=== PATIENT | female | born 1980 | race Caucasian/White ===

== ENCOUNTER 2019-05-16 19:44 | Emergency (ER) | payer OTHER ==
--- NOTE | 2019-05-16 20:51 | EDM.PDOC ---
ED HPI GENERAL MEDICAL PROBLEM - General Chief Complaint: General Stated Complaint: MEDICAL CLEARANCE Time Seen by Provider: 05/16/19 20:39 Source of Information: Reports: Patient History Limitations: Reports: No Limitations - History of Present Illness INITIAL COMMENTS - FREE TEXT/NARRATIVE: HISTORY AND PHYSICAL: History of present illness: Patient is a 38 she'll female who presents to the emergency room by law enforcement for medical clearance. Patient currently offers no concerns or complaints, she states she has chronic pain but doesn't have her usual pain medications because she is approximately 24 weeks . She reports she has had care with Dr Ellie Grijalva. She reports having a hard time as her dog recently and is under a lot of stress. Enforcement states that they have placed a committal on her for mental health evaluation in [place]. They want her medically cleared for transport to [facility]. Patient denies any fever, chills, headache, change in vision, syncope or near syncope. Denies any chest pain, back pain, shortness of breath or cough. Denies any abdominal pain, nausea, vomiting, diarrhea, constipation or dysuria. Has had vaginal discharge, but no vaginal bleeding/cramping. Has not noted any blood in urine or stool. Patient has been eating and drinking appropriately. Denies any alcohol or drug abuse. Review of systems: As per history of present illness and below otherwise all systems reviewed and negative. Past medical history: As per history of present illness and as reviewed below otherwise noncontributory. Surgical history: As per history of present illness and as reviewed below otherwise noncontributory. Social history: See social history for further information Family history: As per history of present illness and as reviewed below otherwise noncontributory. Physical exam: General: Well-developed and well-nourished 38-year-old female. Alert and oriented. patient is hyperverbal and appears anxious although in no acute distress. HEENT: Atraumatic, normocephalic, pupils equal and reactive bilaterally, negative for conjunctival pallor or scleral icterus, mucous membranes moist, TMs normal bilaterally, throat clear, neck supple, nontender, trachea midline. No drooling or trismus noted. No meningeal signs. No hot potato voice noted. Lungs: Clear to auscultation, breath sounds equal bilaterally, chest nontender. Heart: S1S2, regular rate and rhythm without overt murmur Abdomen: Soft, nondistended, nontender. Negative for masses or hepatosplenomegaly. Negative for costovertebral tenderness. Skin: Intact, warm, dry. No lesions or rashes noted. Extremities: Atraumatic, moves all extremities per self without difficulty or deficits, negative for cords or calf pain. Neurovascular unremarkable. Neuro: Awake, alert, oriented. Cranial nerves II through XII unremarkable. Cerebellum unremarkable. Motor and sensory unremarkable throughout. Exam nonfocal. Notes: VSS. FHT 150's. Supportive care measures were reviewed and discussed. Voices understanding and is agreeable to plan of care. Denies any further questions or concerns at this time. D/c with law enforcement. Diagnostics: Heart Tone Therapeutics: None Prescription: None Impression: Encounter for medical screening exam Plan: 1. Please go to treatment facility that you have arranged for further psychiatric management. 2. Return to ED as needed and as discussed. Definitive disposition and diagnosis as appropriate pending reevaluation and review of above. chronic Pain Score (Numeric/FACES): 10 - Related Data Allergies Allergy/AdvReac Type Severity Reaction Status Date / Time Sulfa (Sulfonamide Allergy Swelling Verified 05/16/19 20:41 Antibiotics) tizanidine Allergy Rash Verified 05/16/19 20:41 Home Meds: Home Meds tiZANidine [Zanaflex] 0 mg PO QID 05/16/19 [History] ED ROS GENERAL - Review of Systems Review Of Systems: Comprehensive ROS is negative, except as noted in HPI. ED EXAM, GENERAL - Physical Exam Exam: See Below (See dictation) Course - Vital Signs Last Recorded V/S: Last Vital Signs Temp 97.8 F 05/16/19 20:42 Pulse 102 H 05/16/19 20:42 Resp 18 05/16/19 20:42 BP 136/78 05/16/19 20:42 Pulse Ox 97 05/16/19 20:42 Departure - Departure Time of Disposition: 20:51 Disposition: Home, Self-Care 01 Clinical Impression: Encounter for medical screening examination - Discharge Information Referrals: Ellie Lyon CNM [Primary Care Provider] - Forms: ED Department Discharge Additional Instructions: The following information is given to patients seen in the emergency department who are being discharged to home. This information is to outline your options for follow-up care. We provide all patients seen in our emergency department with a follow-up referral. The need for follow-up, as well as the timing and circumstances, are variable depending upon the specifics of your emergency department visit. If you don't have a primary care physician on staff, we will provide you with a referral. We always advise you to contact your personal physician following an emergency department visit to inform them of the circumstance of the visit and for follow-up with them and/or the need for any referrals to a consulting specialist. The emergency department will also refer you to a specialist when appropriate. This referral assures that you have the opportunity for follow-up care with a specialist. All of these measure are taken in an effort to provide you with optimal care, which includes your follow-up. Under all circumstances we always encourage you to contact your private physician who remains a resource for coordinating your care. When calling for follow-up care, please make the office aware that this follow-up is from your recent emergency room visit. If for any reason you are refused follow-up, please contact the [facility] Emergency Department at and asked to speak to the emergency department charge nurse. [facility] [address] [place] [id number] [facility] [address] [place] [id number] 1. Please go to treatment facility that you have arranged for further psychiatric management. 2. Return to ED as needed and as discussed. Sepsis Event Note - Evaluation Sepsis Screening Result: No Definite Risk - Focused Exam Vital Signs: Vital Signs Temp Pulse Resp BP Pulse Ox 05/16/19 20:42 97.8 F 102 H 18 136/78 97 Date Exam was Performed: 05/16/19 Time Exam was Performed: 20:52
== END 2019-05-16 21:05 | disposition home or self-care (01) ==
LOC: MW.ED 19:44
DX: Z13.30 Encounter for screening examination for mental health and behavioral disorders, unspecified (principal); Z88.2 Allergy status to sulfonamides; Z88.8 Allergy status to other drugs, medicaments and biological substances; Z3A.24 24 weeks gestation of pregnancy
CPT/HCPCS: 99283

== ENCOUNTER 2019-08-10 16:59 | Inpatient (IN) | payer MEDICAID ==
[2019-08-10] MEDS ORDERED: Sodium Chloride 0.9% 10 ML Syringe FLUSH PRN ×2 (17:47→21:05)
[2019-08-10] MEDS ORDERED: Sodium Chloride 0.9% 2.5 ML Syringe FLUSH PRN ×2 (17:47→21:05)
[2019-08-10] MEDS ORDERED: hydrALAZINE 20 MG/ML SDV IVPUSH ONE (18:06)
--- NOTE | 2019-08-10 18:13 | EDM.PDOC ---
ED HPI GENERAL MEDICAL PROBLEM - General Chief Complaint: UMBRELLA TIPPER Problem Stated Complaint: UNKNOWN Time Seen by Provider: 08/10/19 18:13 Source of Information: Reports: Patient History Limitations: Reports: No Limitations - History of Present Illness INITIAL COMMENTS - FREE TEXT/NARRATIVE: 38-year-old female delivered 5 days ago has a history of eclampsia on medication. Patient is on 20 mg of labetalol daily and presented with headaches and right upper quadrant abdominal pain. Denies seizures or any other problems. Onset: Today Duration: Hour(s):, Getting Worse Location: Reports: Head, Abdomen Quality: Reports: Burning, Pressure Severity: Moderate Improves with: Reports: None Worsens with: Reports: None Associated Symptoms: Reports: Headaches post sx site Pain Score (Numeric/FACES): 10 - Related Data Allergies Allergy/AdvReac Type Severity Reaction Status Date / Time ciprofloxacin [From Cipro] Allergy Hives Verified 08/10/19 17:53 Sulfa (Sulfonamide Allergy Swelling Verified 08/10/19 17:53 Antibiotics) tizanidine Allergy Rash Verified 08/10/19 17:53 Home Meds: Home Meds Acetaminophen/oxyCODONE [Percocet 325-5 MG] 5 - 325 mg PO Q4HR PRN 08/10/19 [ History] Labetalol [Normodyne] 200 mg PO DAILY 08/10/19 [History] Past Medical History HEENT History: Reports: None Cardiovascular History: Reports: Hypertension Respiratory History: Reports: Asthma Genitourinary History: Reports: None UMBRELLA TIPPER History: Reports: Musculoskeletal History: Reports: RA Psychiatric History: Reports: Bipolar, Depression, PTSD, Suicidal Ideation - Infectious Disease History Infectious Disease History: Reports: Chicken Pox, Hepatitis A, Hepatitis B, Hepatitis C, HIV-Human Immunodeficiency Virus, Measles, Mumps, Shingles - Past Surgical History Female Surgical History: Reports: None Social & Family History - Family History Family Medical History: Noncontributory ED ROS GENERAL - Review of Systems Review Of Systems: See Below Constitutional: Reports: Weakness, Fatigue Respiratory: Reports: No Symptoms Cardiovascular: Reports: No Symptoms Endocrine: Reports: No Symptoms GI/Abdominal: Reports: No Symptoms : Reports: No Symptoms Neurological: Reports: Headache Psychiatric: Reports: No Symptoms Hematologic/Lymphatic: Reports: No Symptoms Immunologic: Reports: No Symptoms ED EXAM - Physical Exam Exam: See Below Exam Limited By: No Limitations General Appearance: Alert, WD/WN, No Apparent Distress, Moderate Distress Eye Exam: Bilateral Eye: Normal Fundi, Normal Inspection Ears: Normal External Exam, Normal Canal Nose: Normal Inspection, Normal Mucosa Throat/Mouth: Normal Inspection, Normal Lips Head: Atraumatic, Normocephalic Neck: Normal Inspection, Supple Respiratory/Chest: No Respiratory Distress, Lungs Clear Cardiovascular: Normal Peripheral Pulses, Regular Rate, Rhythm, No JVD GI/Abdominal Exam: Normal Bowel Sounds, Soft, Non-Tender Back Exam: Normal Inspection, Full Range of Motion Extremities: Normal Inspection, Normal Range of Motion Neurological: Alert, Oriented, CN II-XII Intact, Normal Cognition, Normal Reflexes, No Motor/Sensory Deficits Psychiatric: Normal Affect, Normal Mood Skin Exam: Warm, Dry, Normal Color Course - Vital Signs Text/Narrative:: This 38-year-old female presents the emergency room chief complaint of eclampsia. Blood pressure was 180/135 when she presented patient given hydralazine IV her blood pressure responded to 130/80. Patient had a CT scan of the head which was negative. Patient is CBC and electrolytes as well as urine. They appear normal except for anemia hemoglobin is 7.7. I discussed the case with . Just the patient go to labor and delivery. Blood pressure is now 175 systolic. Patient is oriented x3. Patient complaining of a mild headache. AssessmEnt: hypertension/eclampsia The case with the SCHOOL LIBRARIAN he wishes patient sent to L&D Last Recorded V/S: Last Vital Signs Temp 97.3 F 08/10/19 17:36 Pulse 103 H 08/10/19 18:33 Resp 21 H 08/10/19 18:33 BP 174/110 H 08/10/19 18:33 Pulse Ox 96 08/10/19 18:33 - Orders/Labs/Meds Orders: Active Orders 24 hr Category Date Time Status EKG Documentation Completion [RC] STAT Care 08/10/19 17:47 Active Labetalol [Normodyne] Med 08/10/19 19:34 Once 20 mg IVPUSH ONETIME ONE Sodium Chloride 0.9% [Saline Flush] Med 08/10/19 17:47 Active 10 ml FLUSH ASDIRECTED PRN Sodium Chloride 0.9% [Saline Flush] Med 08/10/19 17:47 Active 2.5 ml FLUSH ASDIRECTED PRN Saline Lock Insert [OM.PC] Stat Oth 08/10/19 17:47 Ordered Medication Orders Labetalol HCl (Normodyne) 20 mg IVPUSH ONETIME ONE; Protocol Stop: 08/10/19 19:35 Sodium Chloride (Saline Flush) 10 ml FLUSH ASDIRECTED PRN PRN Reason: Keep Vein Open Sodium Chloride (Saline Flush) 2.5 ml FLUSH ASDIRECTED PRN PRN Reason: Keep Vein Open Labs: Laboratory Tests 08/10/19 08/10/19 08/10/19 Range/Units 17:43 17:43 17:43 WBC 10.24 (4.0-11.0) K/uL RBC 2.66 L (4.30-5.90) M/uL Hgb 7.4 L (12.0-16.0) g/dL Hct 23.1 L (36.0-46.0) % MCV 86.8 (80.0-98.0) fL MCH 27.8 (27.0-32.0) pg MCHC 32.0 (31.0-37.0) g/dL RDW Std Deviation 46.3 (28.0-62.0) fl RDW Coeff of Veronica 15 (11.0-15.0) % Plt Count 318 (150-400) K/uL MPV 9.00 (7.40-12.00) fL Neut % (Auto) 69.5 (48.0-80.0) % Lymph % (Auto) 21.2 (16.0-40.0) % [place] % (Auto) 7.3 (0.0-15.0) % Eos % (Auto) 1.9 (0.0-7.0) % Baso % (Auto) 0.1 (0.0-1.5) % Neut # (Auto) 7.1 H (1.4-5.7) K/uL Lymph # (Auto) 2.2 (0.6-2.4) K/uL [place] # (Auto) 0.8 (0.0-0.8) K/uL Eos # (Auto) 0.2 (0.0-0.7) K/uL Baso # (Auto) 0.0 (0.0-0.1) K/uL Nucleated RBC % 0.0 /100WBC Nucleated RBCs # 0 K/uL INR 0.90 Sodium 143 (136-145) mmol/L Potassium 3.7 (3.5-5.1) mmol/L Chloride 105 (98-107) mmol/L Carbon Dioxide 26.7 (21.0-32.0) mmol/L BUN 12 (7.0-18.0) mg/dL Creatinine 0.7 (0.6-1.0) mg/dL Est Cr Clr Drug Dosing 108.04 mL/min Estimated GFR (MDRD) > 60.0 ml/min Glucose 90 (74-106) mg/dL Calcium 8.9 (8.5-10.1) mg/dL Total Bilirubin 0.6 (0.2-1.0) mg/dL AST 31 (15-37) IU/L ALT 21 (14-63) IU/L Alkaline Phosphatase 85 (46-116) U/L Total Protein 6.0 L (6.4-8.2) g/dL Albumin 2.4 L (3.4-5.0) g/dL Globulin 3.6 (2.6-4.0) g/dL Albumin/Globulin Ratio 0.7 L (0.9-1.6) Urine Color Urine Appearance Urine pH (5.0-8.0) Ur Specific Alto (1.001-1.035) Urine Protein (NEGATIVE) mg/dL Urine Glucose (UA) (NEGATIVE) mg/dL Urine Ketones (NEGATIVE) mg/dL Urine Occult Blood (NEGATIVE) Urine Nitrite (NEGATIVE) Urine Bilirubin (NEGATIVE) Urine Urobilinogen (<2.0) EU/dL Ur Leukocyte Esterase (NEGATIVE) Urine RBC (0-2/HPF) Urine WBC (0-5/HPF) Ur Epithelial Cells (NONE-FEW) Urine Bacteria (NEGATIVE) 08/10/19 Range/Units 17:47 WBC (4.0-11.0) K/uL RBC (4.30-5.90) M/uL Hgb (12.0-16.0) g/dL Hct (36.0-46.0) % MCV (80.0-98.0) fL MCH (27.0-32.0) pg MCHC (31.0-37.0) g/dL RDW Std Deviation (28.0-62.0) fl RDW Coeff of Veronica (11.0-15.0) % Plt Count (150-400) K/uL MPV (7.40-12.00) fL Neut % (Auto) (48.0-80.0) % Lymph % (Auto) (16.0-40.0) % [place] % (Auto) (0.0-15.0) % Eos % (Auto) (0.0-7.0) % Baso % (Auto) (0.0-1.5) % Neut # (Auto) (1.4-5.7) K/uL Lymph # (Auto) (0.6-2.4) K/uL [place] # (Auto) (0.0-0.8) K/uL Eos # (Auto) (0.0-0.7) K/uL Baso # (Auto) (0.0-0.1) K/uL Nucleated RBC % /100WBC Nucleated RBCs # K/uL INR Sodium (136-145) mmol/L Potassium (3.5-5.1) mmol/L Chloride (98-107) mmol/L Carbon Dioxide (21.0-32.0) mmol/L BUN (7.0-18.0) mg/dL Creatinine (0.6-1.0) mg/dL Est Cr Clr Drug Dosing mL/min Estimated GFR (MDRD) ml/min Glucose (74-106) mg/dL Calcium (8.5-10.1) mg/dL Total Bilirubin (0.2-1.0) mg/dL AST (15-37) IU/L ALT (14-63) IU/L Alkaline Phosphatase (46-116) U/L Total Protein (6.4-8.2) g/dL Albumin (3.4-5.0) g/dL Globulin (2.6-4.0) g/dL Albumin/Globulin Ratio (0.9-1.6) Urine Color YELLOW Urine Appearance CLEAR Urine pH 7.0 (5.0-8.0) Ur Specific Alto 1.015 (1.001-1.035) Urine Protein NEGATIVE (NEGATIVE) mg/dL Urine Glucose (UA) NEGATIVE (NEGATIVE) mg/dL Urine Ketones NEGATIVE (NEGATIVE) mg/dL Urine Occult Blood SMALL H (NEGATIVE) Urine Nitrite NEGATIVE (NEGATIVE) Urine Bilirubin NEGATIVE (NEGATIVE) Urine Urobilinogen 0.2 (<2.0) EU/dL Ur Leukocyte Esterase NEGATIVE (NEGATIVE) Urine RBC 1-3 (0-2/HPF) Urine WBC 0-1 (0-5/HPF) Ur Epithelial Cells MODERATE (NONE-FEW) Urine Bacteria RARE (NEGATIVE) Meds: Medications Generic Name Dose Route Start Last Admin Trade Name Freq PRN Reason Stop Dose Admin Labetalol HCl 20 mg 08/10/19 19:34 Normodyne IVPUSH 08/10/19 19:35 ONETIME ONE Protocol Sodium Chloride 10 ml 08/10/19 17:47 Saline Flush FLUSH ASDIRECTED PRN Keep Vein Open Sodium Chloride 2.5 ml 08/10/19 17:47 Saline Flush FLUSH ASDIRECTED PRN Keep Vein Open Discontinued Medications Generic Name Dose Route Start Last Admin Trade Name Freq PRN Reason Stop Dose Admin Hydralazine HCl 20 mg 08/10/19 18:06 08/10/19 18:28 Apresoline IVPUSH 08/10/19 18:07 20 mg ONETIME ONE Administration Departure - Departure Time of Disposition: 19:39 Disposition: Refer to Observation Clinical Impression: eclampsia - Discharge Information Referrals: Ellie Lyon CNM [Primary Care Provider] - Forms: ED Department Discharge Sepsis Event Note - Evaluation Sepsis Screening Result: No Definite Risk - Focused Exam Vital Signs: Vital Signs Temp Pulse Resp BP Pulse Ox 08/10/19 18:33 103 H 21 H 174/110 H 96 08/10/19 18:26 90 L 08/10/19 18:15 99 22 H 186/115 H 90 L 08/10/19 18:00 116 H 19 144/97 H 98 08/10/19 17:36 97.3 F 104 H 21 H 183/98 H 95 Date Exam was Performed: 08/10/19 Time Exam was Performed: 19:35 - My Orders Last 24 Hours: My Active Orders 08/10/19 19:34 Labetalol [Normodyne] 20 mg IVPUSH ONETIME ONE - Assessment/Plan Last 24 Hours: My Active Orders 08/10/19 19:34 Labetalol [Normodyne] 20 mg IVPUSH ONETIME ONE
[2019-08-10 18:14] LABS: BLOOD UREA NITROGEN,BUN 12 mg/dL (7.0-18.0); CARBON DIOXIDE,CO2 26.7 mmol/L (21.0-32.0); CHLORIDE,CL 105 mmol/L (98-107); GLUCOSE RANDOM 90 mg/dL (74-106); POTASSIUM,K 3.7 mmol/L (3.5-5.1); SODIUM,NA 143 mmol/L (136-145)
--- NOTE | 2019-08-10 19:11 | CT ---
Head CT Technique: Multiple axial sections through the brain were obtained. Intravenous contrast was not utilized. Comparison: No prior intracranial imaging is available. Findings: Ventricles along with basal cisterns and sulci over the convexities are within normal limits for the patient's age. No abnormal parenchymal densities are seen. No evidence of intracranial hemorrhage. No midline shift or mass effect is seen. Minimal mucosal thickening is noted within the ethmoid sinuses believed to be incidental. Visualized mastoid sinuses show nothing acute. No acute calvarial abnormality is seen. Impression: 1. Minimal sinus findings, believed to be incidental. 2. No acute intracranial abnormality is appreciated. Diagnostic code #2 Study was dictated in MDT
[2019-08-10] MEDS ORDERED: Labetalol 100 MG/20 ML MDV IVPUSH ONE (19:34)
[2019-08-10] MEDS ORDERED: Sodium Chloride 0.9% 10 ML SDV IV PRN (21:05)
[2019-08-10] MEDS ORDERED: Magnesium Sulfate/Water 4 GM in Premix Bag 1 BAG IV ONE (21:05)
[2019-08-10] MEDS ORDERED: Calcium Gluconate 10% 1 GM/10 ML SDV IV PRN (21:05)
[2019-08-10] MEDS ORDERED: Magnesium Sulfate/Water 100 ML ONE (21:16)
[2019-08-10] MEDS ORDERED: Magnesium Sulfate/Water 20 GM/500 ML BAG ONE (21:17)
[2019-08-10] MEDS ORDERED: Acetaminophen/oxyCODONE 325-5 MG Tab PO PRN (21:45)
[2019-08-10] MEDS: Magnesium Sulfate/Water 20 GM/500 ML BAG IV SCH (21:50)
--- NOTE | 2019-08-10 21:58 | CR ---
INDICATION: . Rule out PNA. TECHNIQUE: Semi upright portable AP image of the chest. COMPARISON: None. FINDINGS: Lungs somewhat low in volume. No obvious infiltrate. No pleural fusion. Heart size and pulmonary vasculature within normal limits. Mild thoracic dextroscoliosis. IMPRESSION: Lungs somewhat low in volume. No obvious infiltrate. Dictated by John Paul Dubon MD @ Aug 10 2019 9:54PM Signed by Dr. John Paul Dubon @ Aug 10 2019 9:56PM
[2019-08-10] MEDS ORDERED: Lactated Ringers 1,000 ML IV SCH (22:15)
[2019-08-10] MEDS: Acetaminophen/oxyCODONE 325-5 MG Tab PO PRN (22:37)
[2019-08-10 22:38] LABS: BLOOD UREA NITROGEN,BUN 11 mg/dL (7.0-18.0); CARBON DIOXIDE,CO2 28.3 mmol/L (21.0-32.0); CHLORIDE,CL 106 mmol/L (98-107); GLUCOSE RANDOM 82 mg/dL (74-106); POTASSIUM,K 3.6 mmol/L (3.5-5.1); SODIUM,NA 144 mmol/L (136-145)
[2019-08-11] MEDS: Acetaminophen/oxyCODONE 325-5 MG Tab PO PRN ×6 (02:34→22:46)
[2019-08-11] MEDS: Magnesium Sulfate/Water 20 GM/500 ML BAG IV SCH (08:04)
--- NOTE | 2019-08-11 11:16 | PCM.HP.2 ---
H&P History of Present Illness - General Date of Service: 08/10/19 Admit Problem/Dx: Admission Diagnosis/Problem Admission Diagnosis/Problem Eclampsia, condition or complication Source of Information: Patient History Limitations: Reports: No Limitations - History of Present Illness Improves with: Reports: None Worsens with: Reports: None Associated Symptoms: Reports: No Other Symptoms post sx site Pain Score (Numeric/FACES): 7 - Related Data Allergies/Adverse Reactions: Allergies Allergy/AdvReac Type Severity Reaction Status Date / Time ciprofloxacin [From Cipro] Allergy Hives Verified 08/10/19 17:53 Sulfa (Sulfonamide Allergy Swelling Verified 08/10/19 17:53 Antibiotics) tizanidine Allergy Rash Verified 08/10/19 17:53 Home Medications: Home Meds Acetaminophen/oxyCODONE [Percocet 325-5 MG] 5 - 325 mg PO Q4HR PRN 08/10/19 [ History] Labetalol [Normodyne] 200 mg PO DAILY 08/10/19 [History] Past Medical History HEENT History: Reports: None Cardiovascular History: Reports: Hypertension Respiratory History: Reports: Asthma Genitourinary History: Reports: None [employer] TE[employer]ER History: Reports: Other OB/BYN History: pre-ecclampsia Musculoskeletal History: Reports: RA Other Musculoskeletal History: degenerative disc, herniated disc, sciatic issues Psychiatric History: Reports: Bipolar, Depression, PTSD, Suicidal Ideation - Infectious Disease History Infectious Disease History: Reports: Chicken Pox, Hepatitis A, Hepatitis B, Hepatitis C, HIV-Human Immunodeficiency Virus, Measles, Mumps, Shingles - Past Surgical History Female Surgical History: Reports: None Social & Family History - Family History Family Medical History: Noncontributory - Tobacco Use Smoking Status *Q: Never Smoker Second Hand Smoke Exposure: No - Caffeine Use Caffeine Use: Reports: None - Recreational Drug Use Recreational Drug Use: No H&P Review of Systems - Review of Systems: Review Of Systems: See Below General: Reports: No Symptoms HEENT: Reports: No Symptoms Pulmonary: Reports: No Symptoms Cardiovascular: Reports: No Symptoms Gastrointestinal: Reports: No Symptoms Genitourinary: Reports: No Symptoms Musculoskeletal: Reports: No Symptoms Skin: Reports: No Symptoms Psychiatric: Reports: No Symptoms Neurological: Reports: No Symptoms Hematologic/Lymphatic: Reports: No Symptoms Immunologic: Reports: No Symptoms Exam - Exam Exam: See Below - Vital Signs Vital Signs: Last Vital Signs Temp 36.9 C 08/11/19 09:00 Pulse 110 H 08/11/19 11:00 Resp 20 08/11/19 11:00 BP 169/106 H 08/11/19 11:00 Pulse Ox 90 L 08/11/19 11:00 Weight: 98.43 kg - Exam General: Alert, Oriented, 4 HEENT: PERRLA, Hearing Intact, Mucosa Moist & [place], Nares Patent, Normal Nasal Septum, Posterior Pharynx Clear, Conjunctiva Clear, EOMI, EACs Clear, TMs Clear Neck: Supple, Trachea Midline, 2 Lungs: Clear to Auscultation, Normal Respiratory Effort Cardiovascular: Regular Rate, Regular Rhythm GI/Abdominal Exam: Normal Bowel Sounds, Soft, Non-Tender, No Organomegaly, No Distention, No Abnormal Bruit, No Mass, Pelvis Stable (Female) Exam: Normal External Exam, Normal Speculum Exam, Normal Bimanual Exam Rectal (Female) Exam: Normal Exam, Normal Rectal Tone Back Exam: Normal Inspection, Full Range of Motion, NT Extremities: Normal Inspection, Normal Range of Motion, Non-Tender, No Pedal Edema, Normal Capillary Refill Skin: Warm, Dry, Intact Neurological: Cranial Nerves Intact, Reflexes Equal Bilateral Neuro Extensive - Mental Status: Alert, Oriented x3, Normal Mood/Affect, Normal Cognition Neuro Extensive - Motor, Sensory, Reflexes: CN II-XII Intact, Normal Gait, Normal Reflexes Psychiatric: Alert, Normal Affect, Normal Mood - Patient Data Lab Results Last 24 hrs: Laboratory Results - last 24 hr 08/10/19 08/10/19 08/10/19 Range/Units 17:43 17:43 17:43 WBC 10.24 (4.0-11.0) K/uL RBC 2.66 L (4.30-5.90) M/uL Hgb 7.4 L (12.0-16.0) g/dL Hct 23.1 L (36.0-46.0) % MCV 86.8 (80.0-98.0) fL MCH 27.8 (27.0-32.0) pg MCHC 32.0 (31.0-37.0) g/dL RDW Std Deviation 46.3 (28.0-62.0) fl RDW Coeff of Veronica 15 (11.0-15.0) % Plt Count 318 (150-400) K/uL MPV 9.00 (7.40-12.00) fL Neut % (Auto) 69.5 (48.0-80.0) % Lymph % (Auto) 21.2 (16.0-40.0) % [place] % (Auto) 7.3 (0.0-15.0) % Eos % (Auto) 1.9 (0.0-7.0) % Baso % (Auto) 0.1 (0.0-1.5) % Neut # (Auto) 7.1 H (1.4-5.7) K/uL Lymph # (Auto) 2.2 (0.6-2.4) K/uL [place] # (Auto) 0.8 (0.0-0.8) K/uL Eos # (Auto) 0.2 (0.0-0.7) K/uL Baso # (Auto) 0.0 (0.0-0.1) K/uL Nucleated RBC % 0.0 /100WBC Nucleated RBCs # 0 K/uL INR 0.90 Sodium 143 (136-145) mmol/L Potassium 3.7 (3.5-5.1) mmol/L Chloride 105 (98-107) mmol/L Carbon Dioxide 26.7 (21.0-32.0) mmol/L BUN 12 (7.0-18.0) mg/dL Creatinine 0.7 (0.6-1.0) mg/dL Est Cr Clr Drug Dosing 108.04 mL/min Estimated GFR (MDRD) > 60.0 ml/min Glucose 90 (74-106) mg/dL Uric Acid (2.6-7.2) mg/dL Calcium 8.9 (8.5-10.1) mg/dL Magnesium (1.8-2.4) mg/dL Total Bilirubin 0.6 (0.2-1.0) mg/dL AST 31 (15-37) IU/L ALT 21 (14-63) IU/L Alkaline Phosphatase 85 (46-116) U/L Total Protein 6.0 L (6.4-8.2) g/dL Albumin 2.4 L (3.4-5.0) g/dL Globulin 3.6 (2.6-4.0) g/dL Albumin/Globulin Ratio 0.7 L (0.9-1.6) Urine Color Urine Appearance Urine pH (5.0-8.0) Ur Specific [place] (1.001-1.035) Urine Protein (NEGATIVE) mg/dL Urine Glucose (UA) (NEGATIVE) mg/dL Urine Ketones (NEGATIVE) mg/dL Urine Occult Blood (NEGATIVE) Urine Nitrite (NEGATIVE) Urine Bilirubin (NEGATIVE) Urine Urobilinogen (<2.0) EU/dL Ur Leukocyte Esterase (NEGATIVE) Urine RBC (0-2/HPF) Urine WBC (0-5/HPF) Ur Epithelial Cells (NONE-FEW) Urine Bacteria (NEGATIVE) Blood Type Antibody Screen Crossmatch 08/10/19 08/10/19 08/10/19 Range/Units 17:47 21:47 21:47 WBC 10.66 (4.0-11.0) K/uL RBC 2.74 L (4.30-5.90) M/uL Hgb 7.7 L (12.0-16.0) g/dL Hct 23.8 L (36.0-46.0) % MCV 86.9 (80.0-98.0) fL MCH 28.1 (27.0-32.0) pg MCHC 32.4 (31.0-37.0) g/dL RDW Std Deviation 46.7 (28.0-62.0) fl RDW Coeff of Veronica 15 (11.0-15.0) % Plt Count 342 (150-400) K/uL MPV 9.20 (7.40-12.00) fL Neut % (Auto) (48.0-80.0) % Lymph % (Auto) (16.0-40.0) % [place] % (Auto) (0.0-15.0) % Eos % (Auto) (0.0-7.0) % Baso % (Auto) (0.0-1.5) % Neut # (Auto) (1.4-5.7) K/uL Lymph # (Auto) (0.6-2.4) K/uL [place] # (Auto) (0.0-0.8) K/uL Eos # (Auto) (0.0-0.7) K/uL Baso # (Auto) (0.0-0.1) K/uL Nucleated RBC % 0.7 /100WBC Nucleated RBCs # 0 K/uL INR Sodium 144 (136-145) mmol/L Potassium 3.6 (3.5-5.1) mmol/L Chloride 106 (98-107) mmol/L Carbon Dioxide 28.3 (21.0-32.0) mmol/L BUN 11 (7.0-18.0) mg/dL Creatinine 0.6 (0.6-1.0) mg/dL Est Cr Clr Drug Dosing 126.05 mL/min Estimated GFR (MDRD) > 60.0 ml/min Glucose 82 (74-106) mg/dL Uric Acid 5.6 (2.6-7.2) mg/dL Calcium 9.1 (8.5-10.1) mg/dL Magnesium (1.8-2.4) mg/dL Total Bilirubin 0.6 (0.2-1.0) mg/dL AST 28 (15-37) IU/L ALT 24 (14-63) IU/L Alkaline Phosphatase 82 (46-116) U/L Total Protein 6.1 L (6.4-8.2) g/dL Albumin 2.5 L (3.4-5.0) g/dL Globulin 3.6 (2.6-4.0) g/dL Albumin/Globulin Ratio 0.7 L (0.9-1.6) Urine Color YELLOW Urine Appearance CLEAR Urine pH 7.0 (5.0-8.0) Ur Specific [place] 1.015 (1.001-1.035) Urine Protein NEGATIVE (NEGATIVE) mg/dL Urine Glucose (UA) NEGATIVE (NEGATIVE) mg/dL Urine Ketones NEGATIVE (NEGATIVE) mg/dL Urine Occult Blood SMALL H (NEGATIVE) Urine Nitrite NEGATIVE (NEGATIVE) Urine Bilirubin NEGATIVE (NEGATIVE) Urine Urobilinogen 0.2 (<2.0) EU/dL Ur Leukocyte Esterase NEGATIVE (NEGATIVE) Urine RBC 1-3 (0-2/HPF) Urine WBC 0-1 (0-5/HPF) Ur Epithelial Cells MODERATE (NONE-FEW) Urine Bacteria RARE (NEGATIVE) Blood Type Antibody Screen Crossmatch 08/10/19 08/11/19 08/11/19 Range/Units 21:47 01:35 06:20 WBC (4.0-11.0) K/uL RBC (4.30-5.90) M/uL Hgb 9.7 L (12.0-16.0) g/dL Hct 30.3 L (36.0-46.0) % MCV (80.0-98.0) fL MCH (27.0-32.0) pg MCHC (31.0-37.0) g/dL RDW Std Deviation (28.0-62.0) fl RDW Coeff of Veronica (11.0-15.0) % Plt Count (150-400) K/uL MPV (7.40-12.00) fL Neut % (Auto) (48.0-80.0) % Lymph % (Auto) (16.0-40.0) % [place] % (Auto) (0.0-15.0) % Eos % (Auto) (0.0-7.0) % Baso % (Auto) (0.0-1.5) % Neut # (Auto) (1.4-5.7) K/uL Lymph # (Auto) (0.6-2.4) K/uL [place] # (Auto) (0.0-0.8) K/uL Eos # (Auto) (0.0-0.7) K/uL Baso # (Auto) (0.0-0.1) K/uL Nucleated RBC % /100WBC Nucleated RBCs # K/uL INR Sodium (136-145) mmol/L Potassium (3.5-5.1) mmol/L Chloride (98-107) mmol/L Carbon Dioxide (21.0-32.0) mmol/L BUN (7.0-18.0) mg/dL Creatinine (0.6-1.0) mg/dL Est Cr Clr Drug Dosing mL/min Estimated GFR (MDRD) ml/min Glucose (74-106) mg/dL Uric Acid (2.6-7.2) mg/dL Calcium (8.5-10.1) mg/dL Magnesium 3.6 H (1.8-2.4) mg/dL Total Bilirubin (0.2-1.0) mg/dL AST (15-37) IU/L ALT (14-63) IU/L Alkaline Phosphatase (46-116) U/L Total Protein (6.4-8.2) g/dL Albumin (3.4-5.0) g/dL Globulin (2.6-4.0) g/dL Albumin/Globulin Ratio (0.9-1.6) Urine Color Urine Appearance Urine pH (5.0-8.0) Ur Specific [place] (1.001-1.035) Urine Protein (NEGATIVE) mg/dL Urine Glucose (UA) (NEGATIVE) mg/dL Urine Ketones (NEGATIVE) mg/dL Urine Occult Blood (NEGATIVE) Urine Nitrite (NEGATIVE) Urine Bilirubin (NEGATIVE) Urine Urobilinogen (<2.0) EU/dL Ur Leukocyte Esterase (NEGATIVE) Urine RBC (0-2/HPF) Urine WBC (0-5/HPF) Ur Epithelial Cells (NONE-FEW) Urine Bacteria (NEGATIVE) Blood Type O POSITIVE Antibody Screen NEGATIVE Crossmatch See Detail 08/11/19 Range/Units 06:20 WBC (4.0-11.0) K/uL RBC (4.30-5.90) M/uL Hgb (12.0-16.0) g/dL Hct (36.0-46.0) % MCV (80.0-98.0) fL MCH (27.0-32.0) pg MCHC (31.0-37.0) g/dL RDW Std Deviation (28.0-62.0) fl RDW Coeff of Veronica (11.0-15.0) % Plt Count (150-400) K/uL MPV (7.40-12.00) fL Neut % (Auto) (48.0-80.0) % Lymph % (Auto) (16.0-40.0) % [place] % (Auto) (0.0-15.0) % Eos % (Auto) (0.0-7.0) % Baso % (Auto) (0.0-1.5) % Neut # (Auto) (1.4-5.7) K/uL Lymph # (Auto) (0.6-2.4) K/uL [place] # (Auto) (0.0-0.8) K/uL Eos # (Auto) (0.0-0.7) K/uL Baso # (Auto) (0.0-0.1) K/uL Nucleated RBC % /100WBC Nucleated RBCs # K/uL INR Sodium (136-145) mmol/L Potassium (3.5-5.1) mmol/L Chloride (98-107) mmol/L Carbon Dioxide (21.0-32.0) mmol/L BUN (7.0-18.0) mg/dL Creatinine (0.6-1.0) mg/dL Est Cr Clr Drug Dosing mL/min Estimated GFR (MDRD) ml/min Glucose (74-106) mg/dL Uric Acid (2.6-7.2) mg/dL Calcium (8.5-10.1) mg/dL Magnesium 4.8 H (1.8-2.4) mg/dL Total Bilirubin (0.2-1.0) mg/dL AST (15-37) IU/L ALT (14-63) IU/L Alkaline Phosphatase (46-116) U/L Total Protein (6.4-8.2) g/dL Albumin (3.4-5.0) g/dL Globulin (2.6-4.0) g/dL Albumin/Globulin Ratio (0.9-1.6) Urine Color Urine Appearance Urine pH (5.0-8.0) Ur Specific [place] (1.001-1.035) Urine Protein (NEGATIVE) mg/dL Urine Glucose (UA) (NEGATIVE) mg/dL Urine Ketones (NEGATIVE) mg/dL Urine Occult Blood (NEGATIVE) Urine Nitrite (NEGATIVE) Urine Bilirubin (NEGATIVE) Urine Urobilinogen (<2.0) EU/dL Ur Leukocyte Esterase (NEGATIVE) Urine RBC (0-2/HPF) Urine WBC (0-5/HPF) Ur Epithelial Cells (NONE-FEW) Urine Bacteria (NEGATIVE) Blood Type Antibody Screen Crossmatch Result Diagrams: 08/11/19 06:20 08/10/19 21:47 Sepsis Event Note - Evaluation Sepsis Screening Result: No Definite Risk - Focused Exam Vital Signs: Vital Signs Temp Temp Pulse Resp BP Pulse Ox 08/11/19 11:00 110 H 20 169/106 H 90 L 08/11/19 10:00 106 H 22 H 168/101 H 93 L 08/11/19 09:00 36.9 C 98 19 178/79 H 93 L 08/11/19 08:00 104 H 27 H 171/94 H 92 L 08/11/19 07:30 36.9 C 105 H 24 H 162/99 H 95 08/11/19 04:30 20 88 L 08/11/19 03:45 36.8 C 103 H 19 165/101 H 95 08/11/19 03:30 36.9 C 107 H 19 160/93 H 08/11/19 03:15 36.9 C 92 18 160/93 H 96 08/11/19 02:05 37.1 C 103 H 19 169/92 H 95 08/11/19 01:50 36.8 C 97 21 H 95 08/11/19 01:35 36.9 C 102 H 22 H 166/89 H 97 Date Exam was Performed: 08/11/19 Time Exam was Performed: 11:09 Problem List Initiated/Reviewed/Updated: Yes Orders Last 24hrs: Active Orders 24 hr Category Date Time Status Patient Status [ADT] Routine ADT 08/10/19 21:05 Active Antiembolic Devices [RC] .Routine Care 08/10/19 21:06 Active Bedrest [RC] ASDIRECTED Care 08/10/19 21:05 Active Communication Order [RC] PRN Care 08/10/19 21:05 Active Communication Order [RC] PRN Care 08/10/19 21:05 Active EKG Documentation Completion [RC] STAT Care 08/10/19 17:47 Active Equipment to Bedside [RC] PRN Care 08/10/19 21:10 Active Height and Weight [RC] DAILY Care 08/10/19 21:05 Active Intake and Output [RC] QSHIFT Care 08/10/19 21:05 Active Notify Provider Status Change [RC] ASDIRECTED Care 08/10/19 21:10 Active Notify Provider [RC] PRN Care 08/10/19 21:05 Active Oxygen Therapy [RC] PRN Care 08/10/19 21:05 Active VTE/DVT Education [RC] PER UNIT ROUTINE Care 08/10/19 21:06 Active Vital Signs [RC] ASDIRECTED Care 08/10/19 21:05 Active MAGNESIUM [CHEM] Q6H Lab 08/11/19 13:30 Ordered MAGNESIUM [CHEM] Q6H Lab 08/11/19 19:30 Ordered MAGNESIUM [CHEM] Q6H Lab 08/12/19 01:30 Ordered Acetaminophen/oxyCODONE [Percocet 325-5 MG] Med 08/10/19 21:45 Active 1 tab PO Q4H PRN Acetaminophen/oxyCODONE [Percocet 325-5 MG] Med 08/10/19 21:45 Active 2 tab PO Q4H PRN Calcium Gluconate Med 08/10/19 21:05 Active 1 gm IV ASDIRECTED PRN Lactated Ringers [Ringers, Lactated] 1,000 ml Med 08/10/19 22:15 Active IV ASDIRECTED Magnesium Sulfate/Water [Magnesium Sulfate in Water Med 08/10/19 21:15 Active Premix] 20 gm in 500 ml IV ASDIRECTED NIFEdipine [Procardia XL] Med 08/11/19 11:15 Ordered 30 mg PO BID Sodium Chloride 0.9% [Normal Saline] Med 08/10/19 21:05 Active 10 ml IV ASDIRECTED PRN Sodium Chloride 0.9% [Saline Flush] Med 08/10/19 17:47 Active 10 ml FLUSH ASDIRECTED PRN Sodium Chloride 0.9% [Saline Flush] Med 08/10/19 21:05 Active 10 ml FLUSH ASDIRECTED PRN Sodium Chloride 0.9% [Saline Flush] Med 08/10/19 17:47 Active 2.5 ml FLUSH ASDIRECTED PRN Sodium Chloride 0.9% [Saline Flush] Med 08/10/19 21:05 Active 2.5 ml FLUSH ASDIRECTED PRN DVT/VTE Prophylaxis Reflex [OM.PC] Routine Ot 08/10/19 21:05 Ordered Deep Tendon Reflexes [[facility]SER] [facility] 08/10/19 21:15 Ordered Deep Tendon Reflexes [WOMSER] Q1[facility] 08/10/19 22:15 Ordered Deep Tendon Reflexes [WOMSER] Q1 Ot 08/10/19 23:15 Ordered Deep Tendon Reflexes [WOMSER] Q1 Ot 08/11/19 00:15 Ordered Deep Tendon Reflexes [WOMSER] Q1 Ot 08/11/19 01:15 Ordered Deep Tendon Reflexes [WOMSER] Q1[facility] 08/11/19 02:15 Ordered Deep Tendon Reflexes [WOMSER] Q1[facility] 08/11/19 03:15 Ordered Deep Tendon Reflexes [WOMSER] Q1 Ot 08/11/19 04:15 Ordered Deep Tendon Reflexes [WOMSER] Q1H Oth 08/11/19 05:15 Ordered Deep Tendon Reflexes [WOMSER] [address] 08/11/19 06:15 Ordered Deep Tendon Reflexes [WOMSER] [address] 08/11/19 07:15 Ordered Deep Tendon Reflexes [WOMSER] [address] 08/11/19 08:15 Ordered Deep Tendon Reflexes [WOMSER] [address] 08/11/19 09:15 Ordered Deep Tendon Reflexes [WOMSER] [address] 08/11/19 10:15 Ordered Deep Tendon Reflexes [WOMSER] [address] 08/11/19 11:15 Ordered Deep Tendon Reflexes [WOMSER] [address] 08/11/19 12:15 Ordered Deep Tendon Reflexes [WOMSER] [address] 08/11/19 13:15 Ordered Deep Tendon Reflexes [WOMSER] [address] 08/11/19 14:15 Ordered Deep Tendon Reflexes [WOMSER] [address] 08/11/19 15:15 Ordered Deep Tendon Reflexes [WOMSER] [address] 08/11/19 16:15 Ordered Deep Tendon Reflexes [WOMSER] [address] 08/11/19 17:15 Ordered Deep Tendon Reflexes [WOMSER] [address] 08/11/19 18:15 Ordered Deep Tendon Reflexes [WOMSER] [address] 08/11/19 19:15 Ordered Deep Tendon Reflexes [WOMSER] [address] 08/11/19 20:15 Ordered Electronic Heart Tones Ext w TOCO [WOMSER] Per Ot 08/10/19 21:05 Ordered Unit Routine Peripheral IV Insertion Adult [OM.PC] Routine Ot 08/10/19 21:05 Ordered Saline Lock Insert [OM.PC] Stat Ot 08/10/19 17:47 Ordered Transfuse PRBC [Transfuse Red Blood Cells] [COMM] Stat Ot 08/10/19 21:53 Ordered Medication Orders Calcium Gluconate (Calcium Gluconate) 1 gm IV ASDIRECTED PRN PRN Reason: respiratory distress Magnesium Sulfate (Magnesium Sulfate In Water Premix) 20 gm in 500 mls @ 50 mls /hr IV ASDIRECTED CAMRYN; Protocol Last Admin: 08/11/19 08:04 Dose: 2 gm/hr, 50 mls/hr Admin: 08/10/19 21:50 Dose: 2 gm/hr, 50 mls/hr Lactated Ringer's (Ringers, Lactated) 1,000 mls @ 5 mls/hr IV ASDIRECTED CAMRYN Last Admin: 08/10/19 21:30 Dose: 5 mls/hr Nifedipine (Procardia Xl) 30 mg PO BID CAMRYN Oxycodone/Acetaminophen (Percocet 325-5 Mg) 2 tab PO Q4H PRN PRN Reason: Pain (severe 7-10) Last Admin: 08/11/19 10:38 Dose: 2 tab Admin: 08/11/19 06:31 Dose: 2 tab Admin: 08/11/19 02:34 Dose: 2 tab Admin: 08/10/19 22:37 Dose: 2 tab Oxycodone/Acetaminophen (Percocet 325-5 Mg) 1 tab PO Q4H PRN PRN Reason: Pain (moderate 4-6) Sodium Chloride (Saline Flush) 10 ml FLUSH ASDIRECTED PRN PRN Reason: Keep Vein Open Sodium Chloride (Saline Flush) 2.5 ml FLUSH ASDIRECTED PRN PRN Reason: Keep Vein Open Sodium Chloride (Saline Flush) 10 ml FLUSH ASDIRECTED PRN PRN Reason: Keep Vein Open Sodium Chloride (Saline Flush) 2.5 ml FLUSH ASDIRECTED PRN PRN Reason: Keep Vein Open Sodium Chloride (Normal Saline) 10 ml IV ASDIRECTED PRN PRN Reason: IV Use Assessment/Plan Comment:: S/P c/section 4 day ago for sever preeclampsia. admitted with elevated blood pr.
--- NOTE | 2019-08-11 11:18 | PCM.PN ---
- General Info Date of Service: 08/11/19 Functional Status: Reports: Pain Controlled - Review of Systems General: Reports: No Symptoms HEENT: Reports: No Symptoms Pulmonary: Reports: No Symptoms Cardiovascular: Reports: No Symptoms Gastrointestinal: Reports: No Symptoms Genitourinary: Reports: No Symptoms Musculoskeletal: Reports: No Symptoms Skin: Reports: No Symptoms Neurological: Reports: No Symptoms Psychiatric: Reports: No Symptoms - Patient Data Vitals - Most Recent: Last Vital Signs Temp 36.9 C 08/11/19 09:00 Pulse 110 H 08/11/19 11:00 Resp 20 08/11/19 11:00 BP 169/106 H 08/11/19 11:00 Pulse Ox 90 L 08/11/19 11:00 Weight - Most Recent: 98.43 kg I&O - Last 24 Hours: Intake & Output 08/10/19 08/11/19 08/11/19 22:59 06:59 14:59 Intake Total 800 Output Total 726 0430 Balance -725 -2410 Lab Results Last 24 Hours: Laboratory Results - last 24 hr 08/10/19 08/10/19 08/10/19 Range/Units 17:43 17:43 17:43 WBC 10.24 (4.0-11.0) K/uL RBC 2.66 L (4.30-5.90) M/uL Hgb 7.4 L (12.0-16.0) g/dL Hct 23.1 L (36.0-46.0) % MCV 86.8 (80.0-98.0) fL MCH 27.8 (27.0-32.0) pg MCHC 32.0 (31.0-37.0) g/dL RDW Std Deviation 46.3 (28.0-62.0) fl RDW Coeff of Veronica 15 (11.0-15.0) % Plt Count 318 (150-400) K/uL MPV 9.00 (7.40-12.00) fL Neut % (Auto) 69.5 (48.0-80.0) % Lymph % (Auto) 21.2 (16.0-40.0) % [place] % (Auto) 7.3 (0.0-15.0) % Eos % (Auto) 1.9 (0.0-7.0) % Baso % (Auto) 0.1 (0.0-1.5) % Neut # (Auto) 7.1 H (1.4-5.7) K/uL Lymph # (Auto) 2.2 (0.6-2.4) K/uL [place] # (Auto) 0.8 (0.0-0.8) K/uL Eos # (Auto) 0.2 (0.0-0.7) K/uL Baso # (Auto) 0.0 (0.0-0.1) K/uL Nucleated RBC % 0.0 /100WBC Nucleated RBCs # 0 K/uL INR 0.90 Sodium 143 (136-145) mmol/L Potassium 3.7 (3.5-5.1) mmol/L Chloride 105 (98-107) mmol/L Carbon Dioxide 26.7 (21.0-32.0) mmol/L BUN 12 (7.0-18.0) mg/dL Creatinine 0.7 (0.6-1.0) mg/dL Est Cr Clr Drug Dosing 108.04 mL/min Estimated GFR (MDRD) > 60.0 ml/min Glucose 90 (74-106) mg/dL Uric Acid (2.6-7.2) mg/dL Calcium 8.9 (8.5-10.1) mg/dL Magnesium (1.8-2.4) mg/dL Total Bilirubin 0.6 (0.2-1.0) mg/dL AST 31 (15-37) IU/L ALT 21 (14-63) IU/L Alkaline Phosphatase 85 (46-116) U/L Total Protein 6.0 L (6.4-8.2) g/dL Albumin 2.4 L (3.4-5.0) g/dL Globulin 3.6 (2.6-4.0) g/dL Albumin/Globulin Ratio 0.7 L (0.9-1.6) Urine Color Urine Appearance Urine pH (5.0-8.0) Ur Specific [place] (1.001-1.035) Urine Protein (NEGATIVE) mg/dL Urine Glucose (UA) (NEGATIVE) mg/dL Urine Ketones (NEGATIVE) mg/dL Urine Occult Blood (NEGATIVE) Urine Nitrite (NEGATIVE) Urine Bilirubin (NEGATIVE) Urine Urobilinogen (<2.0) EU/dL Ur Leukocyte Esterase (NEGATIVE) Urine RBC (0-2/HPF) Urine WBC (0-5/HPF) Ur Epithelial Cells (NONE-FEW) Urine Bacteria (NEGATIVE) Blood Type Antibody Screen Crossmatch 08/10/19 08/10/19 08/10/19 Range/Units 17:47 21:47 21:47 WBC 10.66 (4.0-11.0) K/uL RBC 2.74 L (4.30-5.90) M/uL Hgb 7.7 L (12.0-16.0) g/dL Hct 23.8 L (36.0-46.0) % MCV 86.9 (80.0-98.0) fL MCH 28.1 (27.0-32.0) pg MCHC 32.4 (31.0-37.0) g/dL RDW Std Deviation 46.7 (28.0-62.0) fl RDW Coeff of Veronica 15 (11.0-15.0) % Plt Count 342 (150-400) K/uL MPV 9.20 (7.40-12.00) fL Neut % (Auto) (48.0-80.0) % Lymph % (Auto) (16.0-40.0) % [place] % (Auto) (0.0-15.0) % Eos % (Auto) (0.0-7.0) % Baso % (Auto) (0.0-1.5) % Neut # (Auto) (1.4-5.7) K/uL Lymph # (Auto) (0.6-2.4) K/uL [place] # (Auto) (0.0-0.8) K/uL Eos # (Auto) (0.0-0.7) K/uL Baso # (Auto) (0.0-0.1) K/uL Nucleated RBC % 0.7 /100WBC Nucleated RBCs # 0 K/uL INR Sodium 144 (136-145) mmol/L Potassium 3.6 (3.5-5.1) mmol/L Chloride 106 (98-107) mmol/L Carbon Dioxide 28.3 (21.0-32.0) mmol/L BUN 11 (7.0-18.0) mg/dL Creatinine 0.6 (0.6-1.0) mg/dL Est Cr Clr Drug Dosing 126.05 mL/min Estimated GFR (MDRD) > 60.0 ml/min Glucose 82 (74-106) mg/dL Uric Acid 5.6 (2.6-7.2) mg/dL Calcium 9.1 (8.5-10.1) mg/dL Magnesium (1.8-2.4) mg/dL Total Bilirubin 0.6 (0.2-1.0) mg/dL AST 28 (15-37) IU/L ALT 24 (14-63) IU/L Alkaline Phosphatase 82 (46-116) U/L Total Protein 6.1 L (6.4-8.2) g/dL Albumin 2.5 L (3.4-5.0) g/dL Globulin 3.6 (2.6-4.0) g/dL Albumin/Globulin Ratio 0.7 L (0.9-1.6) Urine Color YELLOW Urine Appearance CLEAR Urine pH 7.0 (5.0-8.0) Ur Specific [place] 1.015 (1.001-1.035) Urine Protein NEGATIVE (NEGATIVE) mg/dL Urine Glucose (UA) NEGATIVE (NEGATIVE) mg/dL Urine Ketones NEGATIVE (NEGATIVE) mg/dL Urine Occult Blood SMALL H (NEGATIVE) Urine Nitrite NEGATIVE (NEGATIVE) Urine Bilirubin NEGATIVE (NEGATIVE) Urine Urobilinogen 0.2 (<2.0) EU/dL Ur Leukocyte Esterase NEGATIVE (NEGATIVE) Urine RBC 1-3 (0-2/HPF) Urine WBC 0-1 (0-5/HPF) Ur Epithelial Cells MODERATE (NONE-FEW) Urine Bacteria RARE (NEGATIVE) Blood Type Antibody Screen Crossmatch 08/10/19 08/11/19 08/11/19 Range/Units 21:47 01:35 06:20 WBC (4.0-11.0) K/uL RBC (4.30-5.90) M/uL Hgb 9.7 L (12.0-16.0) g/dL Hct 30.3 L (36.0-46.0) % MCV (80.0-98.0) fL MCH (27.0-32.0) pg MCHC (31.0-37.0) g/dL RDW Std Deviation (28.0-62.0) fl RDW Coeff of Veronica (11.0-15.0) % Plt Count (150-400) K/uL MPV (7.40-12.00) fL Neut % (Auto) (48.0-80.0) % Lymph % (Auto) (16.0-40.0) % [place] % (Auto) (0.0-15.0) % Eos % (Auto) (0.0-7.0) % Baso % (Auto) (0.0-1.5) % Neut # (Auto) (1.4-5.7) K/uL Lymph # (Auto) (0.6-2.4) K/uL [place] # (Auto) (0.0-0.8) K/uL Eos # (Auto) (0.0-0.7) K/uL Baso # (Auto) (0.0-0.1) K/uL Nucleated RBC % /100WBC Nucleated RBCs # K/uL INR Sodium (136-145) mmol/L Potassium (3.5-5.1) mmol/L Chloride (98-107) mmol/L Carbon Dioxide (21.0-32.0) mmol/L BUN (7.0-18.0) mg/dL Creatinine (0.6-1.0) mg/dL Est Cr Clr Drug Dosing mL/min Estimated GFR (MDRD) ml/min Glucose (74-106) mg/dL Uric Acid (2.6-7.2) mg/dL Calcium (8.5-10.1) mg/dL Magnesium 3.6 H (1.8-2.4) mg/dL Total Bilirubin (0.2-1.0) mg/dL AST (15-37) IU/L ALT (14-63) IU/L Alkaline Phosphatase (46-116) U/L Total Protein (6.4-8.2) g/dL Albumin (3.4-5.0) g/dL Globulin (2.6-4.0) g/dL Albumin/Globulin Ratio (0.9-1.6) Urine Color Urine Appearance Urine pH (5.0-8.0) Ur Specific [place] (1.001-1.035) Urine Protein (NEGATIVE) mg/dL Urine Glucose (UA) (NEGATIVE) mg/dL Urine Ketones (NEGATIVE) mg/dL Urine Occult Blood (NEGATIVE) Urine Nitrite (NEGATIVE) Urine Bilirubin (NEGATIVE) Urine Urobilinogen (<2.0) EU/dL Ur Leukocyte Esterase (NEGATIVE) Urine RBC (0-2/HPF) Urine WBC (0-5/HPF) Ur Epithelial Cells (NONE-FEW) Urine Bacteria (NEGATIVE) Blood Type O POSITIVE Antibody Screen NEGATIVE Crossmatch See Detail 08/11/19 Range/Units 06:20 WBC (4.0-11.0) K/uL RBC (4.30-5.90) M/uL Hgb (12.0-16.0) g/dL Hct (36.0-46.0) % MCV (80.0-98.0) fL MCH (27.0-32.0) pg MCHC (31.0-37.0) g/dL RDW Std Deviation (28.0-62.0) fl RDW Coeff of Veronica (11.0-15.0) % Plt Count (150-400) K/uL MPV (7.40-12.00) fL Neut % (Auto) (48.0-80.0) % Lymph % (Auto) (16.0-40.0) % [place] % (Auto) (0.0-15.0) % Eos % (Auto) (0.0-7.0) % Baso % (Auto) (0.0-1.5) % Neut # (Auto) (1.4-5.7) K/uL Lymph # (Auto) (0.6-2.4) K/uL [place] # (Auto) (0.0-0.8) K/uL Eos # (Auto) (0.0-0.7) K/uL Baso # (Auto) (0.0-0.1) K/uL Nucleated RBC % /100WBC Nucleated RBCs # K/uL INR Sodium (136-145) mmol/L Potassium (3.5-5.1) mmol/L Chloride (98-107) mmol/L Carbon Dioxide (21.0-32.0) mmol/L BUN (7.0-18.0) mg/dL Creatinine (0.6-1.0) mg/dL Est Cr Clr Drug Dosing mL/min Estimated GFR (MDRD) ml/min Glucose (74-106) mg/dL Uric Acid (2.6-7.2) mg/dL Calcium (8.5-10.1) mg/dL Magnesium 4.8 H (1.8-2.4) mg/dL Total Bilirubin (0.2-1.0) mg/dL AST (15-37) IU/L ALT (14-63) IU/L Alkaline Phosphatase (46-116) U/L Total Protein (6.4-8.2) g/dL Albumin (3.4-5.0) g/dL Globulin (2.6-4.0) g/dL Albumin/Globulin Ratio (0.9-1.6) Urine Color Urine Appearance Urine pH (5.0-8.0) Ur Specific [place] (1.001-1.035) Urine Protein (NEGATIVE) mg/dL Urine Glucose (UA) (NEGATIVE) mg/dL Urine Ketones (NEGATIVE) mg/dL Urine Occult Blood (NEGATIVE) Urine Nitrite (NEGATIVE) Urine Bilirubin (NEGATIVE) Urine Urobilinogen (<2.0) EU/dL Ur Leukocyte Esterase (NEGATIVE) Urine RBC (0-2/HPF) Urine WBC (0-5/HPF) Ur Epithelial Cells (NONE-FEW) Urine Bacteria (NEGATIVE) Blood Type Antibody Screen Crossmatch Med Orders - Current: Current Medications Calcium Gluconate (Calcium Gluconate) 1 gm IV ASDIRECTED PRN PRN Reason: respiratory distress Magnesium Sulfate (Magnesium Sulfate In Water Premix) 20 gm in 500 mls @ 50 mls /hr IV ASDIRECTED CAMRYN; Protocol Last Admin: 08/11/19 08:04 Dose: 2 gm/hr, 50 mls/hr Lactated Ringer's (Ringers, Lactated) 1,000 mls @ 5 mls/hr IV ASDIRECTED CAMRYN Last Admin: 08/10/19 21:30 Dose: 5 mls/hr Nifedipine (Procardia Xl) 30 mg PO BID CAMRYN Oxycodone/Acetaminophen (Percocet 325-5 Mg) 2 tab PO Q4H PRN PRN Reason: Pain (severe 7-10) Last Admin: 08/11/19 10:38 Dose: 2 tab Oxycodone/Acetaminophen (Percocet 325-5 Mg) 1 tab PO Q4H PRN PRN Reason: Pain (moderate 4-6) Sodium Chloride (Saline Flush) 10 ml FLUSH ASDIRECTED PRN PRN Reason: Keep Vein Open Sodium Chloride (Saline Flush) 2.5 ml FLUSH ASDIRECTED PRN PRN Reason: Keep Vein Open Sodium Chloride (Saline Flush) 10 ml FLUSH ASDIRECTED PRN PRN Reason: Keep Vein Open Sodium Chloride (Saline Flush) 2.5 ml FLUSH ASDIRECTED PRN PRN Reason: Keep Vein Open Sodium Chloride (Normal Saline) 10 ml IV ASDIRECTED PRN PRN Reason: IV Use Discontinued Medications Hydralazine HCl (Apresoline) 20 mg IVPUSH ONETIME ONE Stop: 08/10/19 18:07 Last Admin: 08/10/19 18:28 Dose: 20 mg Magnesium Sulfate 4 gm/ Premix 100 mls @ 300 mls/hr IV BOLUS ONE Stop: 08/10/19 21:24 Last Admin: 08/10/19 21:35 Dose: 300 mls/hr Magnesium Sulfate (Magnesium Sulfate In Water Premix) Confirm Administered Dose 100 mls @ as directed .ROUTE .STK-MED ONE Stop: 08/10/19 21:17 Last Admin: 08/11/19 08:12 Dose: Not Given Magnesium Sulfate (Magnesium Sulfate In Water Premix) Confirm Administered Dose 20 gm in 500 mls @ as directed .ROUTE .STK-MED ONE Stop: 08/10/19 21:18 Last Admin: 08/11/19 08:12 Dose: Not Given Labetalol HCl (Normodyne) 20 mg IVPUSH ONETIME ONE; Protocol Stop: 08/10/19 19:35 Last Admin: 08/10/19 19:49 Dose: 20 mg - Exam General: Alert, Oriented HEENT: Pupils Equal, Pupils Reactive, EOMI, Mucous Membr. Moist/[place] Neck: Supple Lungs: Clear to Auscultation, Normal Respiratory Effort Cardiovascular: Regular Rate, Regular Rhythm GI/Abdominal Exam: Normal Bowel Sounds, Soft, Non-Tender, No Organomegaly, No Distention, No Abnormal Bruit, No Mass, Pelvis Stable (Female) Exam: Normal External Exam, Normal Speculum Exam, Normal Bimanual Exam Back Exam: Normal Inspection, Full Range of Motion Extremities: Normal Inspection, Normal Range of Motion, Non-Tender, No Pedal Edema, Normal Capillary Refill Skin: Warm, Dry, Intact Wound/Incisions: Healing Well Neurological: No New Focal Deficit Psy/Mental Status: Alert, Normal Affect, Normal Mood Sepsis Event Note - Evaluation Sepsis Screening Result: No Definite Risk - Focused Exam Vital Signs: Vital Signs Temp Temp Pulse Resp BP Pulse Ox 08/11/19 11:00 110 H 20 169/106 H 90 L 08/11/19 10:00 106 H 22 H 168/101 H 93 L 08/11/19 09:00 36.9 C 98 19 178/79 H 93 L 08/11/19 08:00 104 H 27 H 171/94 H 92 L 08/11/19 07:30 36.9 C 105 H 24 H 162/99 H 95 08/11/19 04:30 20 88 L 08/11/19 03:45 36.8 C 103 H 19 165/101 H 95 08/11/19 03:30 36.9 C 107 H 19 160/93 H 08/11/19 03:15 36.9 C 92 18 160/93 H 96 08/11/19 02:05 37.1 C 103 H 19 169/92 H 95 08/11/19 01:50 36.8 C 97 21 H 95 08/11/19 01:35 36.9 C 102 H 22 H 166/89 H 97 Date Exam was Performed: 08/11/19 Time Exam was Performed: 11:16 - Problem List Review Problem List Initiated/Reviewed/Updated: Yes - My Orders Last 24 Hours: My Active Orders 08/10/19 21:05 Patient Status [ADT] Routine Bedrest [RC] ASDIRECTED Communication Order [RC] PRN Communication Order [RC] PRN Height and Weight [RC] DAILY Intake and Output [RC] QSHIFT Notify Provider [RC] PRN Oxygen Therapy [RC] PRN Vital Signs [RC] ASDIRECTED Calcium Gluconate 1 gm IV ASDIRECTED PRN Sodium Chloride 0.9% [Normal Saline] 10 ml IV ASDIRECTED PRN Sodium Chloride 0.9% [Saline Flush] 10 ml FLUSH ASDIRECTED PRN Sodium Chloride 0.9% [Saline Flush] 2.5 ml FLUSH ASDIRECTED PRN DVT/VTE Prophylaxis Reflex [OM.PC] Routine Electronic Heart Tones Ext w TOCO [WOMSER] Per Unit Routine Peripheral IV Insertion Adult [OM.PC] Routine 08/10/19 21:06 Antiembolic Devices [RC] .Routine VTE/DVT Education [RC] PER UNIT ROUTINE 08/10/19 21:10 Equipment to Bedside [RC] PRN Notify Provider Status Change [RC] ASDIRECTED 08/10/19 21:15 Magnesium Sulfate/Water [Magnesium Sulfate in Water Premix] 20 gm in 500 ml IV ASDIRECTED Deep Tendon Reflexes [WOMSER] Q1H 08/10/19 21:45 Acetaminophen/oxyCODONE [Percocet 325-5 MG] 1 tab PO Q4H PRN Acetaminophen/oxyCODONE [Percocet 325-5 MG] 2 tab PO Q4H PRN 08/10/19 21:53 Transfuse PRBC [Transfuse Red Blood Cells] [COMM] Stat 08/10/19 22:15 Lactated Ringers [Ringers, Lactated] 1,000 ml IV ASDIRECTED Deep Tendon Reflexes [WOMSER] Q1H 08/10/19 23:15 Deep Tendon Reflexes [WOMSER] Q1H 08/11/19 00:15 Deep Tendon Reflexes [WOMSER] Q1H 08/11/19 01:15 Deep Tendon Reflexes [WOMSER] Q1H 08/11/19 02:15 Deep Tendon Reflexes [WOMSER] Q1H 08/11/19 03:15 Deep Tendon Reflexes [WOMSER] Q1H 08/11/19 04:15 Deep Tendon Reflexes [WOMSER] Q1H 08/11/19 05:15 Deep Tendon Reflexes [WOMSER] Q1 08/11/19 06:15 Deep Tendon Reflexes [WOMSER] Q1 08/11/19 07:15 Deep Tendon Reflexes [WOMSER] Q1H 08/11/19 08:15 Deep Tendon Reflexes [WOMSER] Q1H 08/11/19 09:15 Deep Tendon Reflexes [WOMSER] Q1H 08/11/19 10:15 Deep Tendon Reflexes [WOMSER] Q1H 08/11/19 11:15 NIFEdipine [Procardia XL] 30 mg PO BID Deep Tendon Reflexes [WOMSER] Q1H 08/11/19 12:15 Deep Tendon Reflexes [WOMSER] Q1H 08/11/19 13:15 Deep Tendon Reflexes [WOMSER] Q1H 08/11/19 13:30 MAGNESIUM [CHEM] Q6H 08/11/19 14:15 Deep Tendon Reflexes [WOMSER] Q1H 08/11/19 15:15 Deep Tendon Reflexes [WOMSER] Q1H 08/11/19 16:15 Deep Tendon Reflexes [WOMSER] Q1H 08/11/19 17:15 Deep Tendon Reflexes [WOMSER] Q1H 08/11/19 18:15 Deep Tendon Reflexes [WOMSER] Q1H 08/11/19 19:15 Deep Tendon Reflexes [WOMSER] Q1H 08/11/19 19:30 MAGNESIUM [CHEM] Q6H 08/11/19 20:15 Deep Tendon Reflexes [WOMSER] Q1H 08/12/19 01:30 MAGNESIUM [CHEM] Q6H - Assessment Assessment:: pain under control. swelling is improved blood pr is under is improving. - Plan Plan:: S/P c/section 4 day ago for sever preeclampsia. admitted with elevated blood pr.
[2019-08-11] MEDS: NIFEdipine 30 MG Tab.ER PO SCH ×2 (11:40→21:19)
[2019-08-11] MEDS ORDERED: Furosemide 20 MG/2 ML VIAL IVPUSH ONE (15:05)
[2019-08-11] MEDS ORDERED: Lanolin 100% Cream 7 GM Tube TOP PRN (21:00)
[2019-08-11] MEDS ORDERED: Lanolin 100% Cream 40 GM Tube TOP PRN (21:10)
[2019-08-11] MEDS ORDERED: Lanolin 100% Cream 7 GM Tube ONE (21:14)
[2019-08-12] MEDS: Acetaminophen/oxyCODONE 325-5 MG Tab PO PRN ×3 (02:39→11:22)
[2019-08-12] MEDS ORDERED: NIFEdipine 30 MG Tab.ER PO SCH (09:00)
[2019-08-12 09:15] LABS: BLOOD UREA NITROGEN,BUN 8 mg/dL (7.0-18.0); CARBON DIOXIDE,CO2 24.2 mmol/L (21.0-32.0); CHLORIDE,CL 104 mmol/L (98-107); GLUCOSE RANDOM 87 mg/dL (74-106); POTASSIUM,K 3.8 mmol/L (3.5-5.1); SODIUM,NA 141 mmol/L (136-145)
--- NOTE | 2019-08-12 09:17 | PCM.PN ---
- General Info Date of Service: 08/12/19 Functional Status: Reports: Pain Controlled - Review of Systems General: Reports: No Symptoms HEENT: Reports: No Symptoms Pulmonary: Reports: No Symptoms Cardiovascular: Reports: No Symptoms Gastrointestinal: Reports: No Symptoms Genitourinary: Reports: No Symptoms Musculoskeletal: Reports: No Symptoms Skin: Reports: No Symptoms Neurological: Reports: No Symptoms Psychiatric: Reports: No Symptoms - Patient Data Vitals - Most Recent: Last Vital Signs Temp 36.7 C 08/12/19 04:20 Pulse 91 08/12/19 04:20 Resp 18 08/12/19 04:20 BP 158/101 H 08/12/19 08:33 Pulse Ox 97 08/12/19 04:20 Weight - Most Recent: 98.43 kg I&O - Last 24 Hours: Intake & Output 08/11/19 08/12/19 08/12/19 22:59 06:59 14:59 Output Total 900 Balance -900 Lab Results Last 24 Hours: Laboratory Results - last 24 hr 08/11/19 Range/Units 13:26 Magnesium 5.4 H (1.8-2.4) mg/dL Med Orders - Current: Current Medications Calcium Gluconate (Calcium Gluconate) 1 gm IV ASDIRECTED PRN PRN Reason: respiratory distress Emollient Ointment (Lansinoh Hpa) 0 gm TOP ASDIRECTED PRN PRN Reason: Pain Magnesium Sulfate (Magnesium Sulfate In Water Premix) 20 gm in 500 mls @ 50 mls /hr IV ASDIRECTED [facility]; Protocol Last Admin: 08/11/19 08:04 Dose: 2 gm/hr, 50 mls/hr Lactated Ringer's (Ringers, Lactated) 1,000 mls @ 5 mls/hr IV ASDIRECTED [facility] Last Admin: 08/10/19 21:30 Dose: 5 mls/hr Nifedipine (Procardia Xl) 60 mg PO BID CAMRYN Last Admin: 08/12/19 08:33 Dose: 60 mg Oxycodone/Acetaminophen (Percocet 325-5 Mg) 2 tab PO Q4H PRN PRN Reason: Pain (severe 7-10) Last Admin: 08/12/19 07:33 Dose: 2 tab Oxycodone/Acetaminophen (Percocet 325-5 Mg) 1 tab PO Q4H PRN PRN Reason: Pain (moderate 4-6) Sodium Chloride (Saline Flush) 10 ml FLUSH ASDIRECTED PRN PRN Reason: Keep Vein Open Sodium Chloride (Saline Flush) 2.5 ml FLUSH ASDIRECTED PRN PRN Reason: Keep Vein Open Sodium Chloride (Saline Flush) 10 ml FLUSH ASDIRECTED PRN PRN Reason: Keep Vein Open Sodium Chloride (Saline Flush) 2.5 ml FLUSH ASDIRECTED PRN PRN Reason: Keep Vein Open Sodium Chloride (Normal Saline) 10 ml IV ASDIRECTED PRN PRN Reason: IV Use Discontinued Medications Emollient Ointment (Lansinoh Hpa) 0 gm TOP ASDIRECTED PRN PRN Reason: Pain Emollient Ointment (Lansinoh Hpa) Confirm Administered Dose 7 gm .ROUTE .STK- MED ONE Stop: 08/11/19 21:15 Last Admin: 08/11/19 21:23 Dose: 7 gm Furosemide (Lasix) 20 mg IVPUSH NOW ONE Stop: 08/11/19 15:06 Last Admin: 08/11/19 15:22 Dose: 20 mg Hydralazine HCl (Apresoline) 20 mg IVPUSH ONETIME ONE Stop: 08/10/19 18:07 Last Admin: 08/10/19 18:28 Dose: 20 mg Magnesium Sulfate 4 gm/ Premix 100 mls @ 300 mls/hr IV BOLUS ONE Stop: 08/10/19 21:24 Last Admin: 08/10/19 21:35 Dose: 300 mls/hr Magnesium Sulfate (Magnesium Sulfate In Water Premix) Confirm Administered Dose 100 mls @ as directed .ROUTE .STK-MED ONE Stop: 08/10/19 21:17 Last Admin: 08/11/19 08:12 Dose: Not Given Magnesium Sulfate (Magnesium Sulfate In Water Premix) Confirm Administered Dose 20 gm in 500 mls @ as directed .ROUTE .STK-MED ONE Stop: 08/10/19 21:18 Last Admin: 08/11/19 08:12 Dose: Not Given Labetalol HCl (Normodyne) 20 mg IVPUSH ONETIME ONE; Protocol Stop: 08/10/19 19:35 Last Admin: 08/10/19 19:49 Dose: 20 mg Nifedipine (Procardia Xl) 30 mg PO BID CAMRYN Last Admin: 08/11/19 21:19 Dose: 30 mg - Exam General: Alert, Oriented HEENT: Pupils Equal, Pupils Reactive, EOMI, Mucous Membr. Moist/[place] Neck: Supple Lungs: Clear to Auscultation, Normal Respiratory Effort Cardiovascular: Regular Rate, Regular Rhythm GI/Abdominal Exam: Normal Bowel Sounds, Soft, Non-Tender, No Organomegaly, No Distention, No Abnormal Bruit, No Mass, Pelvis Stable (Female) Exam: Normal External Exam, Normal Speculum Exam, Normal Bimanual Exam Back Exam: Normal Inspection, Full Range of Motion Extremities: Normal Inspection, Normal Range of Motion, Non-Tender, No Pedal Edema, Normal Capillary Refill Skin: Warm, Dry, Intact Wound/Incisions: Healing Well Neurological: No New Focal Deficit Psy/Mental Status: Alert, Normal Affect, Normal Mood Sepsis Event Note - Evaluation Sepsis Screening Result: No Definite Risk - Focused Exam Vital Signs: Vital Signs Temp Pulse Resp BP BP Pulse Ox 08/12/19 08:33 158/101 H 08/12/19 04:20 36.7 C 91 18 149/103 H 97 08/12/19 00:28 36.8 C 98 19 142/96 H 97 08/11/19 22:47 102 H 157/97 H 96 08/11/19 21:19 145/93 H Date Exam was Performed: 08/12/19 Time Exam was Performed: 09:13 - Problem List Review Problem List Initiated/Reviewed/Updated: Yes - My Orders Last 24 Hours: My Active Orders 08/11/19 08:15 Deep Tendon Reflexes [WOMSER] [facility] 08/11/19 09:15 Deep Tendon Reflexes [WOMSER] [facility] 08/11/19 10:15 Deep Tendon Reflexes [WOMSER] [facility] 08/11/19 11:15 Deep Tendon Reflexes [WOMSER] [facility] 08/11/19 12:15 Deep Tendon Reflexes [WOMSER] [facility] 08/11/19 13:15 Deep Tendon Reflexes [WOMSER] [facility] 08/11/19 14:15 Deep Tendon Reflexes [WOMSER] [facility] 08/11/19 15:15 Deep Tendon Reflexes [WOMSER] [facility] 08/11/19 16:15 Deep Tendon Reflexes [WOMSER] [facility] 08/11/19 17:15 Deep Tendon Reflexes [WOMSER] [facility] 03/29/20 18:15 Deep Tendon Reflexes [WOMSER] Q1H 08/11/19 19:15 Deep Tendon Reflexes [WOMSER] Q1H 08/11/19 20:15 Deep Tendon Reflexes [WOMSER] Q1H 08/11/19 21:00 Lanolin [Lansinoh HPA] 0 gm TOP ASDIRECTED PRN 08/12/19 09:00 NIFEdipine [Procardia XL] 60 mg PO BID 08/12/19 Breakfast Regular Diet [DIET] - Assessment Assessment:: pain under control. swelling is improved blood pr is under is improving. 08/12/19 Overall patient is status is improving her swelling is improving and there had incision hematoma is getting better I am planning to used to P code dressing on her today and we would consider discharging her either late this afternoon or tomorrow depending on her blood pressure responding to the medication - Plan Plan:: S/P c/section 4 day ago for sever preeclampsia. admitted with elevated blood pr.
--- NOTE | 2019-08-12 13:27 | PCM.DCSUM1 ---
Discharge Summary - Hospital Course Diagnosis: Stroke: No - Discharge Data Discharge Date: 08/12/19 Discharge Disposition: Home, Self-Care 01 Condition: Fair - Referral to Home Health Primary Care Physician: Ellie Lyon CNM - Patient Instructions Diet: Usual Diet as Tolerated Activity: As Tolerated Driving: Do Not Drive Showering/Bathing: May Shower Wound/Incision Care: Keep Operative Site/Wound Site Clean and Dry Notify Provider of: Fever, Increased Pain - Discharge Plan Home Medications: Home Meds Acetaminophen/oxyCODONE [Percocet 325-5 MG] 5 - 325 mg PO Q4HR PRN 08/10/19 [ History] Labetalol [Normodyne] 200 mg PO DAILY 08/10/19 [History] Forms: ED Department Discharge Referrals: [facility] [Outside] Lit Mayer MD [Physician] - 08/19/19 3:00 pm Ellie Lyon CNM [Primary Care Provider] - 09/16/19 2:15 pm - Discharge Summary/Plan Comment DC Time >30 min.: Yes - General Info Date of Service: 08/12/19 Functional Status: Reports: Pain Controlled - Review of Systems General: Reports: No Symptoms HEENT: Reports: No Symptoms Pulmonary: Reports: No Symptoms Cardiovascular: Reports: No Symptoms Gastrointestinal: Reports: No Symptoms Genitourinary: Reports: No Symptoms Musculoskeletal: Reports: No Symptoms Skin: Reports: No Symptoms Neurological: Reports: No Symptoms Psychiatric: Reports: No Symptoms - Patient Data Vitals - Most Recent: Last Vital Signs Temp 36.7 C 08/12/19 12:00 Pulse 103 H 08/12/19 12:00 Resp 19 08/12/19 12:00 BP 145/97 H 08/12/19 12:00 Pulse Ox 97 08/12/19 12:00 Weight - Most Recent: 98.43 kg I&O - Last 24 hours: Intake & Output 08/11/19 08/12/19 08/12/19 22:59 06:59 14:59 Output Total 900 Balance -900 Lab Results - Last 24 hrs: Laboratory Results - last 24 hr 08/11/19 08/12/19 08/12/19 Range/Units 13:26 08:30 09:05 WBC 10.38 (4.0-11.0) K/uL RBC 4.07 L (4.30-5.90) M/uL Hgb 11.5 L (12.0-16.0) g/dL Hct 35.5 L (36.0-46.0) % MCV 87.2 (80.0-98.0) fL MCH 28.3 (27.0-32.0) pg MCHC 32.4 (31.0-37.0) g/dL RDW Std Deviation 48.1 (28.0-62.0) fl RDW Coeff of Veronica 16 H (11.0-15.0) % Plt Count 360 (150-400) K/uL MPV 9.30 (7.40-12.00) fL Nucleated RBC % 0.4 /100WBC Nucleated RBCs # 0 K/uL Sodium 141 (136-145) mmol/L Potassium 3.8 (3.5-5.1) mmol/L Chloride 104 (98-107) mmol/L Carbon Dioxide 24.2 (21.0-32.0) mmol/L BUN 8 (7.0-18.0) mg/dL Creatinine 0.6 (0.6-1.0) mg/dL Est Cr Clr Drug Dosing 126.05 mL/min Estimated GFR (MDRD) > 60.0 ml/min Glucose 87 (74-106) mg/dL Calcium 8.0 L (8.5-10.1) mg/dL Magnesium 5.4 H (1.8-2.4) mg/dL Total Bilirubin 0.6 (0.2-1.0) mg/dL AST 22 (15-37) IU/L ALT 19 (14-63) IU/L Alkaline Phosphatase 92 (46-116) U/L Total Protein 6.3 L (6.4-8.2) g/dL Albumin 2.7 L (3.4-5.0) g/dL Globulin 3.6 (2.6-4.0) g/dL Albumin/Globulin Ratio 0.8 L (0.9-1.6) Ur Random Creatinine mg/dL U Random Total Protein (<11.9) mg/dL Protein/Creatinin Ratio 30/20 Range/Units 12:40 WBC (4.0-11.0) K/uL RBC (4.30-5.90) M/uL Hgb (12.0-16.0) g/dL Hct (36.0-46.0) % MCV (80.0-98.0) fL MCH (27.0-32.0) pg MCHC (31.0-37.0) g/dL RDW Std Deviation (28.0-62.0) fl RDW Coeff of Veronica (11.0-15.0) % Plt Count (150-400) K/uL MPV (7.40-12.00) fL Nucleated RBC % /100WBC Nucleated RBCs # K/uL Sodium (136-145) mmol/L Potassium (3.5-5.1) mmol/L Chloride (98-107) mmol/L Carbon Dioxide (21.0-32.0) mmol/L BUN (7.0-18.0) mg/dL Creatinine (0.6-1.0) mg/dL Est Cr Clr Drug Dosing mL/min Estimated GFR (MDRD) ml/min Glucose (74-106) mg/dL Calcium (8.5-10.1) mg/dL Magnesium (1.8-2.4) mg/dL Total Bilirubin (0.2-1.0) mg/dL AST (15-37) IU/L ALT (14-63) IU/L Alkaline Phosphatase (46-116) U/L Total Protein (6.4-8.2) g/dL Albumin (3.4-5.0) g/dL Globulin (2.6-4.0) g/dL Albumin/Globulin Ratio (0.9-1.6) Ur Random Creatinine 24.9 mg/dL U Random Total Protein 18.7 H (<11.9) mg/dL Protein/Creatinin Ratio 0.8 Med Orders - Current: Current Medications Calcium Gluconate (Calcium Gluconate) 1 gm IV ASDIRECTED PRN PRN Reason: respiratory distress Emollient Ointment (Lansinoh Hpa) 0 gm TOP ASDIRECTED PRN PRN Reason: Pain Magnesium Sulfate (Magnesium Sulfate In Water Premix) 20 gm in 500 mls @ 50 mls /hr IV ASDIRECTED CAMRYN; Protocol Last Admin: 08/11/19 08:04 Dose: 2 gm/hr, 50 mls/hr Lactated Ringer's (Ringers, Lactated) 1,000 mls @ 5 mls/hr IV ASDIRECTED CAMRYN Last Admin: 08/10/19 21:30 Dose: 5 mls/hr Nifedipine (Procardia Xl) 60 mg PO BID [facility] Last Admin: 08/12/19 08:33 Dose: 60 mg Oxycodone/Acetaminophen (Percocet 325-5 Mg) 2 tab PO Q4H PRN PRN Reason: Pain (severe 7-10) Last Admin: 08/12/19 11:22 Dose: 2 tab Oxycodone/Acetaminophen (Percocet 325-5 Mg) 1 tab PO Q4H PRN PRN Reason: Pain (moderate 4-6) Sodium Chloride (Saline Flush) 10 ml FLUSH ASDIRECTED PRN PRN Reason: Keep Vein Open Sodium Chloride (Saline Flush) 2.5 ml FLUSH ASDIRECTED PRN PRN Reason: Keep Vein Open Sodium Chloride (Saline Flush) 10 ml FLUSH ASDIRECTED PRN PRN Reason: Keep Vein Open Sodium Chloride (Saline Flush) 2.5 ml FLUSH ASDIRECTED PRN PRN Reason: Keep Vein Open Sodium Chloride (Normal Saline) 10 ml IV ASDIRECTED PRN PRN Reason: IV Use Discontinued Medications Emollient Ointment (Lansinoh Hpa) 0 gm TOP ASDIRECTED PRN PRN Reason: Pain Emollient Ointment (Lansinoh Hpa) Confirm Administered Dose 7 gm .ROUTE .STK- MED ONE Stop: 08/11/19 21:15 Last Admin: 08/11/19 21:23 Dose: 7 gm Furosemide (Lasix) 20 mg IVPUSH NOW ONE Stop: 08/11/19 15:06 Last Admin: 08/11/19 15:22 Dose: 20 mg Hydralazine HCl (Apresoline) 20 mg IVPUSH ONETIME ONE Stop: 08/10/19 18:07 Last Admin: 08/10/19 18:28 Dose: 20 mg Magnesium Sulfate 4 gm/ Premix 100 mls @ 300 mls/hr IV BOLUS ONE Stop: 08/10/19 21:24 Last Admin: 08/10/19 21:35 Dose: 300 mls/hr Magnesium Sulfate (Magnesium Sulfate In Water Premix) Confirm Administered Dose 100 mls @ as directed .ROUTE .STK-MED ONE Stop: 08/10/19 21:17 Last Admin: 08/11/19 08:12 Dose: Not Given Magnesium Sulfate (Magnesium Sulfate In Water Premix) Confirm Administered Dose 20 gm in 500 mls @ as directed .ROUTE .STK-MED ONE Stop: 08/10/19 21:18 Last Admin: 08/11/19 08:12 Dose: Not Given Labetalol HCl (Normodyne) 20 mg IVPUSH ONETIME ONE; Protocol Stop: 08/10/19 19:35 Last Admin: 08/10/19 19:49 Dose: 20 mg Nifedipine (Procardia Xl) 30 mg PO BID CAMRYN Last Admin: 08/11/19 21:19 Dose: 30 mg - Exam General: Reports: Alert, Oriented HEENT: Reports: Pupils Equal, Pupils Reactive, EOMI, Mucous Membr. Moist/[place] Neck: Reports: Supple Lungs: Reports: Clear to Auscultation, Normal Respiratory Effort Cardiovascular: Reports: Regular Rate, Regular Rhythm GI/Abdominal Exam: Normal Bowel Sounds, Soft, Non-Tender, No Organomegaly, No Distention, No Abnormal Bruit, No Mass, Pelvis Stable (Female) Exam: Normal External Exam, Normal Speculum Exam, Normal Bimanual Exam Rectal (Female) Exam: Normal Exam, Normal Rectal Tone Back Exam: Reports: Normal Inspection, Full Range of Motion Extremities: Normal Inspection, Normal Range of Motion, Non-Tender, No Pedal Edema, Normal Capillary Refill Skin: Reports: Warm, Dry, Intact Wound/Incisions: Reports: Healing Well Neurological: Reports: No New Focal Deficit Psy/Mental Status: Reports: Alert, Normal Affect, Normal Mood
== END 2019-08-12 14:30 | disposition home or self-care (01) | DRG 776 ==
LOC: MW.ED 16:59 → UNDOADMIN 19:41 → MW.OB 19:41 → MW.ED 20:08 → MW.OB 21:05
PROVIDERS: ADMIT Obstetrics & Gynecology; ATTEND Obstetrics & Gynecology
DX: O11.5 Pre-existing hypertension with pre-eclampsia, complicating the puerperium (principal); O10.93 Unspecified pre-existing hypertension complicating the puerperium
CPT/HCPCS: 36415; 36430; 70450; 70450-26; 71045; 71045-26; 80053; 81001; 82570; 83735; 84156; 84550; 85014; 85018; 85025; 85027; 85610; 86850; 86900; 86901; 86920; 86921; 86922; 93005; 96374; 96375; 99285; 99285-25; A9270-GY; J0360; J3475; J3490; J7120; P9016

== ENCOUNTER 2019-09-30 18:47 | Emergency (ER) | payer MEDICAID ==
[2019-09-30] MEDS ORDERED: Sodium Chloride 0.9% 2.5 ML Syringe FLUSH PRN (19:16)
[2019-09-30] MEDS ORDERED: fentaNYL 50 MCG/ML SDV IVPUSH ONE ×2 (19:16→21:02)
[2019-09-30] MEDS ORDERED: Sodium Chloride 0.9% 10 ML Syringe FLUSH PRN (19:16)
[2019-09-30] MEDS ORDERED: Sodium Chloride 0.9% 10 ML SDV IV PRN (19:16)
[2019-09-30] MEDS ORDERED: Ketorolac 30 MG/ML SDV IVPUSH ONE (19:25)
--- NOTE | 2019-09-30 19:32 | EDM.PDOC ---
ED HPI GENERAL MEDICAL PROBLEM - General Chief Complaint: Back Pain or Injury Stated Complaint: BACK PAIN Time Seen by Provider: 09/30/19 18:48 Source of Information: Reports: Patient, EMS History Limitations: Reports: No Limitations - History of Present Illness INITIAL COMMENTS - FREE TEXT/NARRATIVE: 38-year-old female with a past medical history of eclampsia and recent diagnosis of lumbar disc herniation presenting the emergency department by ambulance complaining of low back pain. Symptoms present for the past several weeks. She is followed by a spine surgeon who is preparing to perform elective spinal decompression surgery. Underwent MRI of the lumbar spine on August 22, 2019 showing small disc herniation L5-S1 compressing the left S1 nerve root and a broad-based disc herniation at L4-5 effacing the fat around the L4 nerve root. This evening, she presents to the emergency department by EMS complaining of worsening of her chronic low back pain. She isolates her pain to the low back and states that it radiates around the posterior aspect the left thigh to the foot. She states that this pattern of pain is identical to her known sciatica and denies any new pain distribution or neurologic symptoms today. She complains of chronic numbness to the left medial thigh that is not particularly worse today compared to usual. Took 2 acetaminophen tablets prior to arrival and received fentanyl IV from EMS. Denies any recent trauma, new neurologic changes, bowel/bladder retention or incontinence, history of autoimmune disease, fever, immunosuppression, steroid use, personal history of malignancy. Lower Back Pain Score (Numeric/FACES): 10 - Related Data Allergies Allergy/AdvReac Type Severity Reaction Status Date / Time ciprofloxacin [From Cipro] Allergy Hives Verified 08/10/19 17:53 Sulfa (Sulfonamide Allergy Swelling Verified 08/10/19 17:53 Antibiotics) Home Meds: Home Meds Acetaminophen/oxyCODONE [Percocet 325-5 MG] 5 - 325 mg PO Q4HR PRN 08/10/19 [ History] Labetalol [Normodyne] 200 mg PO DAILY 08/10/19 [History] Acetaminophen/oxyCODONE [Percocet 325-5 MG] 1 - 2 each PO Q6H PRN #15 tab [Rx] Past Medical History HEENT History: Reports: None Cardiovascular History: Reports: Hypertension Respiratory History: Reports: Asthma Genitourinary History: Reports: None 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: Reports: Other [employer] 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: pre-ecclampsia Musculoskeletal History: Reports: RA Other Musculoskeletal History: degenerative disc, herniated disc, sciatic issues Psychiatric History: Reports: Bipolar, Depression, PTSD, Suicidal Ideation - Infectious Disease History Infectious Disease History: Reports: Chicken Pox, Hepatitis A, Hepatitis B, Hepatitis C, HIV-Human Immunodeficiency Virus, Measles, Mumps, Shingles - Past Surgical History Female Surgical History: Reports: None Social & Family History - Family History Family Medical History: Noncontributory - Caffeine Use Caffeine Use: Reports: None ED ROS GENERAL - Review of Systems Review Of Systems: Comprehensive ROS is negative, except as noted in HPI. Constitutional: Denies: Fever, Chills HEENT: Reports: No Symptoms Respiratory: Denies: Shortness of Breath Cardiovascular: Denies: Chest Pain Endocrine: Reports: No Symptoms GI/Abdominal: Denies: Abdominal Pain, Nausea, Vomiting : Reports: No Symptoms Musculoskeletal: Reports: Back Pain. Denies: Neck Pain Skin: Reports: No Symptoms Neurological: Reports: Numbness (Prior L medial thigh numbness - unchanged.), Pre-Existing Deficit. Denies: Tingling, Weakness, Gait Disturbance Psychiatric: Reports: No Symptoms Hematologic/Lymphatic: Reports: No Symptoms ED EXAM,LOWER BACK PAIN/INJURY - Physical Exam Exam: See Below Exam Limited By: No Limitations General Appearance: Alert, No Apparent Distress Nose: No: Nasal Drainage Throat/Mouth: No Airway Compromise Head: Atraumatic Respiratory/Chest: No Respiratory Distress Cardiovascular: Normal Peripheral Pulses, No Edema, Other (2+ DP and PT pulses bilaterally) GI/Abdominal: Soft, Non-Tender Back Exam: Other (Mild left-sided lumbar tenderness). No: Vertebral Tenderness Neurological: Alert, Normal Mood/Affect, Oriented x 3, Other (Upgoing EHLs bilaterally, sensation intact to light touch to the bilateral lower extremities although patient reports some subjective left medial thigh numbness which is at baseline and pre-existing. 5/5 strength all lower extremity muscle groups. Able to sit, stand, and ambulate after analgesia.). No: Abnormal Light Touch, Saddle Anesthesia DTR - Lower Extremities: 2+: Knee (R), Knee (L) Skin Exam: Warm, Dry Course - Vital Signs Text/Narrative:: 38-year-old female presenting with acute on chronic left-sided low back pain with sciatica. On arrival she was hemodynamically stable, well-appearing. Neurovascularly intact in the lower extremities. She does have some pre- existing subjective left medial thigh numbness that is been present for at least 3 months and is not any worse today. No report of any new trauma or symptoms to necessitate advanced neuroimaging such as repeat CT or MRI. Patient was given IV fentanyl along with IV ketorolac, p.o. oxycodone, and a lidocaine patch with good relief of her pain. Able to ambulate after these therapies and is able to care for herself. Given her well appearance, reassuring physical examination, I believe the patient is stable for discharge home with outpatient clinic follow-up. Short course of oxycodone was prescribed for breakthrough pain and instructions were given to take [id number] extra strength acetaminophen and ibuprofen as well. Note [facility] was queried with no red flags noted. Strict ED return precautions were provided. Patient was discharged in good condition with all questions answered prior to departure. Last Recorded V/S: Last Vital Signs Temp 36.4 C 09/30/19 18:51 Pulse 81 09/30/19 22:18 Resp 16 09/30/19 22:18 BP 137/72 09/30/19 22:18 Pulse Ox 96 09/30/19 22:18 - Orders/Labs/Meds Orders: Active Orders 24 hr Category Date Time Status Peripheral IV Care [RC] . DIRECTED Care 09/30/19 19:16 Active Sodium Chloride 0.9% [Normal Saline] Med 09/30/19 19:16 Active 10 ml IV ASDIRECTED PRN Sodium Chloride 0.9% [Saline Flush] Med 09/30/19 19:16 Active 10 ml FLUSH ASDIRECTED PRN Sodium Chloride 0.9% [Saline Flush] Med 09/30/19 19:16 Active 2.5 ml FLUSH ASDIRECTED PRN Peripheral IV Insertion Adult [OM.PC] Stat Oth 09/30/19 19:16 Ordered Medication Orders Sodium Chloride (Saline Flush) 10 ml FLUSH ASDIRECTED PRN PRN Reason: Keep Vein Open Sodium Chloride (Saline Flush) 2.5 ml FLUSH ASDIRECTED PRN PRN Reason: Keep Vein Open Sodium Chloride (Normal Saline) 10 ml IV ASDIRECTED PRN PRN Reason: IV Use Meds: Medications Generic Name Dose Route Start Last Admin Trade Name Mendoza PRN Reason Stop Dose Admin Sodium Chloride 10 ml 09/30/19 19:16 Saline Flush FLUSH ASDIRECTED PRN Keep Vein Open Sodium Chloride 2.5 ml 09/30/19 19:16 Saline Flush FLUSH ASDIRECTED PRN Keep Vein Open Sodium Chloride 10 ml 09/30/19 19:16 Normal Saline IV ASDIRECTED PRN IV Use Discontinued Medications Generic Name Dose Route Start Last Admin Trade Name Mendoza PRN Reason Stop Dose Admin Fentanyl 100 mcg 09/30/19 19:16 09/30/19 19:26 Fentanyl IVPUSH 09/30/19 19:17 100 mcg ONETIME ONE Administration Fentanyl 50 mcg 09/30/19 21:02 09/30/19 21:07 Fentanyl IVPUSH 09/30/19 21:03 50 mcg ONETIME ONE Administration Ketorolac Tromethamine 15 mg 09/30/19 19:25 09/30/19 19:29 Toradol IVPUSH 09/30/19 19:26 15 mg ONETIME ONE Administration Lidocaine 700 mg 09/30/19 20:10 09/30/19 20:29 Lidoderm 5% TOP 09/30/19 20:11 700 mg ONETIME ONE Administration Oxycodone HCl 10 mg 09/30/19 20:09 09/30/19 20:28 Oxycodone PO 09/30/19 20:10 10 mg ONETIME ONE Administration - Re-Assessments/Exams Free Text/Narrative Re-Assessment/Exam: 09/30/19 20:11 Good pain relief with medications. Moving left lower extremity more easily and appears more comfortable. Ordered oxycodone and Lidoderm patch and will reassess. Free Text/Narrative Re-Assessment/Exam: 09/30/19 22:15 After second dose of fentanyl, the patient was more comfortable and was able to ambulate to the bathroom and back to the bed. We will plan to discharge home. Departure - Departure Time of Disposition: 22:18 Disposition: Home, Self-Care 01 Condition: Good Clinical Impression: Sciatica Qualifiers: Laterality: left Qualified Code(s): M54.32 - Sciatica, left side - Discharge Information *PRESCRIPTION DRUG MONITORING PROGRAM REVIEWED*: Yes *COPY OF PRESCRIPTION DRUG MONITORING REPORT IN PATIENT SHERLEY: No Prescriptions: Acetaminophen/oxyCODONE [Percocet 325-5 MG] 1 - 2 each PO Q6H PRN #15 tab PRN Reason: Pain (Moderate 4-6) Instructions: Sciatica, [id number] Referrals: Allan Zuniga MD [Primary Care Provider] - Forms: ED Department Discharge Additional Instructions: The following information is given to patients seen in the emergency department who are being discharged to home. This information is to outline your options for follow-up care. We provide all patients seen in our emergency department with a follow-up referral. The need for follow-up, as well as the timing and circumstances, are variable depending upon the specifics of your emergency department visit. If you don't have a primary care physician on staff, we will provide you with a referral. We always advise you to contact your personal physician following an emergency department visit to inform them of the circumstance of the visit and for follow-up with them and/or the need for any referrals to a consulting specialist. The emergency department will also refer you to a specialist when appropriate. This referral assures that you have the opportunity for follow-up care with a specialist. All of these measure are taken in an effort to provide you with optimal care, which includes your follow-up. Under all circumstances we always encourage you to contact your private physician who remains a resource for coordinating your care. When calling for follow-up care, please make the office aware that this follow-up is from your recent emergency room visit. If for any reason you are refused follow-up, please contact the [facility] Emergency Department at and asked to speak to the emergency department charge nurse. [facility] [address] [place] [id number] [id number] Sepsis Event Note - Evaluation Sepsis Screening Result: No Definite Risk - Focused Exam Vital Signs: Vital Signs Temp Pulse Resp BP Pulse Ox 09/30/19 22:18 81 16 137/72 96 09/30/19 21:16 79 16 157/82 H 95 09/30/19 20:24 73 16 126/86 95 09/30/19 18:51 36.4 C 87 22 H 138/100 H 94 L Date Exam was Performed: 09/30/19 Time Exam was Performed: 22:22 - My Orders Last 24 Hours: My Active Orders 09/30/19 19:16 Peripheral IV Care [RC] . DIRECTED Sodium Chloride 0.9% [Normal Saline] 10 ml IV ASDIRECTED PRN Sodium Chloride 0.9% [Saline Flush] 10 ml FLUSH ASDIRECTED PRN Sodium Chloride 0.9% [Saline Flush] 2.5 ml FLUSH ASDIRECTED PRN Peripheral IV Insertion Adult [OM.PC] Stat - Assessment/Plan Last 24 Hours: My Active Orders 09/30/19 19:16 Peripheral IV Care [RC] . DIRECTED Sodium Chloride 0.9% [Normal Saline] 10 ml IV ASDIRECTED PRN Sodium Chloride 0.9% [Saline Flush] 10 ml FLUSH ASDIRECTED PRN Sodium Chloride 0.9% [Saline Flush] 2.5 ml FLUSH ASDIRECTED PRN Peripheral IV Insertion Adult [OM.PC] Stat
[2019-09-30] MEDS ORDERED: oxyCODONE 5 MG Tab PO ONE (20:09)
[2019-09-30] MEDS ORDERED: Lidocaine 5% 700 MG Patch TOP ONE (20:10)
== END 2019-09-30 22:31 | disposition home or self-care (01) ==
LOC: MW.ED 18:47
DX: M54.42 Lumbago with sciatica, left side (principal); I10 Essential (primary) hypertension; J45.909 Unspecified asthma, uncomplicated; Z88.1 Allergy status to other antibiotic agents; Z88.2 Allergy status to sulfonamides; Z79.899 Other long term (current) drug therapy
CPT/HCPCS: 96374; 96375; 96376; 99284; A9270; J1885; J3010; 99283

== ENCOUNTER 2019-10-03 07:14 | Emergency (ER) | payer MEDICAID ==
--- NOTE | 2019-10-03 07:33 | EDM.PDOC ---
ED HPI GENERAL MEDICAL PROBLEM - General Chief Complaint: Back Pain or Injury Stated Complaint: EXTREME BACK PAIN Time Seen by Provider: 10/03/19 07:18 - History of Present Illness INITIAL COMMENTS - FREE TEXT/NARRATIVE: 38-year-old female with history of spinal stenosis, herniated disc, laminectomy , DJD, bone spur, asthma presents with low back pain for 2 days. 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 She admits to intermittent numbness and tingling down bilateral legs for 2 days. Pain is severe, intermittent, exacerbated by standing, walking, laying down. Yesterday she fell because her left leg gave out, she landed on her right knee. She currently denies right knee pain. She denies any fever, chills, urinary incontinence, fecal incontinence, chest pain, shortness of breath, abdominal pain, recent back surgery, IVDA, immunocompromise state. She had 2 episodes of vomiting yesterday secondary to pain. She was seen in the ER 2 days ago for the same complaint and was prescribed Percocet 5/325 (15 tablets), she ran out this morning she because she was taking more than she was prescribed. She had an MRI 2 months ago, and she is scheduled for back surgery at [facility] on 10/30/2019. ROS: A 10-point review of systems, other than pertinent positives and negatives as stated per HPI, is otherwise negative PHYSICAL EXAM General: AOx4, GCS = 15, moderate distress HEENT: dry mucous membrane Neck: supple, no meningismus, no Kernig or Brudzinski Cardiac: S1S2 RRR Respiratory: CTAB, no crackles or rales, no wheezing Abdomen: Soft, nontender, no rebound or guarding, nondistended, no pulsatile mass. Back: nontender to L spine midline, ttp to bilateral paralumbar muscles. Musculoskeletal: NVI distally, no deformity Neuro: No focal deficits, nml gait. MEDICAL DECISION MAKING: I reviewed the patients past medical records, lab and radiographic findings. I discussed the case with family members. My differential diagnosis included: Lumbar strain, spinal stenosis, herniation. Her back pain is suggestive of musculoskeletal strain. There are no complaints of urinary or fecal incontinence, focal numbness or weakness. The patient has a normal gait in the ER. There is no evidence of fever, IV drug use, recent back surgery, or immunocompromised state. I do not suspect caude equine syndrome or cord compression or epidural abscess, which would warrant further imaging. mid/lower back Pain Score (Numeric/FACES): 10 - Related Data Allergies Allergy/AdvReac Type Severity Reaction Status Date / Time ciprofloxacin [From Cipro] Allergy Hives Verified 10/03/19 07:27 Sulfa (Sulfonamide Allergy Swelling Verified 10/03/19 07:27 Antibiotics) Home Meds: Home Meds Acetaminophen/oxyCODONE [Percocet 325-5 MG] 1 - 2 each PO Q6H PRN #15 tab [Rx] Acetaminophen/oxyCODONE [Percocet 325-5 MG] 1 each PO Q6HR PRN #10 tab 10/03/19 [Rx] Cyclobenzaprine [Flexeril] 10 mg PO TID #15 tab 10/03/19 [Rx] Ibuprofen 800 mg PO Q6HR PRN #20 tablet 10/03/19 [Rx] lisinopriL [Lisinopril] 40 mg PO DAILY 10/03/19 [History] Past Medical History HEENT History: Reports: None Cardiovascular History: Reports: Hypertension Respiratory History: Reports: Asthma Genitourinary History: Reports: None 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 SURVEY SUPERINTENDENT History: pre-ecclampsia Musculoskeletal History: Reports: RA Other Musculoskeletal History: degenerative disc, herniated disc, sciatic issues Psychiatric History: Reports: Bipolar, Depression, PTSD, Suicidal Ideation - Infectious Disease History Infectious Disease History: Reports: Chicken Pox, Hepatitis A, Hepatitis B, Hepatitis C, HIV-Human Immunodeficiency Virus, Measles, Mumps, Shingles - Past Surgical History Female Surgical History: Reports: None Social & Family History - Family History Family Medical History: Noncontributory - Caffeine Use Caffeine Use: Reports: None ED ROS GENERAL - Review of Systems Review Of Systems: See Below (see dictation) ED EXAM,LOWER BACK PAIN/INJURY - Physical Exam Exam: See Below (see dictation) Course - Vital Signs Last Recorded V/S: Last Vital Signs Temp 96.1 F L 10/03/19 07:28 Pulse 89 10/03/19 07:28 Resp 19 10/03/19 07:28 BP 153/82 H 10/03/19 07:28 Pulse Ox 96 10/03/19 07:28 - Orders/Labs/Meds Meds: Medications Discontinued Medications Generic Name Dose Route Start Last Admin Trade Name Freq PRN Reason Stop Dose Admin Ketorolac Tromethamine 60 mg 10/03/19 07:56 10/03/19 08:13 Toradol IM 10/03/19 07:57 60 mg ONETIME ONE Administration Departure - Departure Time of Disposition: 08:54 Disposition: Home, Self-Care 01 Condition: Good Clinical Impression: Low back strain - Discharge Information *PRESCRIPTION DRUG MONITORING PROGRAM REVIEWED*: Yes *COPY OF PRESCRIPTION DRUG MONITORING REPORT IN PATIENT SHERLEY: Yes Prescriptions: Acetaminophen/oxyCODONE [Percocet 325-5 MG] 1 each PO Q6HR PRN #10 tab PRN Reason: Pain (Moderate 4-6) Ibuprofen 800 mg PO Q6HR PRN #20 tablet PRN Reason: Pain (Moderate 4-6) Cyclobenzaprine [Flexeril] 10 mg PO TID #15 tab Instructions: Lumbar Sprain, Muscle Strain, [id number] Referrals: Allan Zuniga MD [Primary Care Provider] - Forms: ED Department Discharge Additional Instructions: The following information is given to patients seen in the emergency department who are being discharged to home. This information is to outline your options for follow-up care. We provide all patients seen in our emergency department with a follow-up referral. The need for follow-up, as well as the timing and circumstances, are variable depending upon the specifics of your emergency department visit. If you don't have a primary care physician on staff, we will provide you with a referral. We always advise you to contact your personal physician following an emergency department visit to inform them of the circumstance of the visit and for follow-up with them and/or the need for any referrals to a consulting specialist. The emergency department will also refer you to a specialist when appropriate. This referral assures that you have the opportunity for follow-up care with a specialist. All of these measure are taken in an effort to provide you with optimal care, which includes your follow-up. Under all circumstances we always encourage you to contact your private physician who remains a resource for coordinating your care. When calling for follow-up care, please make the office aware that this follow-up is from your recent emergency room visit. If for any reason you are refused follow-up, please contact the [facility] Emergency Department at and asked to speak to the emergency department charge nurse. Sepsis Event Note - Focused Exam Vital Signs: Vital Signs Temp Pulse Resp BP Pulse Ox 10/03/19 07:28 96.1 F L 89 19 153/82 H 96 Date Exam was Performed: 10/03/19 Time Exam was Performed: 08:53
[2019-10-03] MEDS ORDERED: Ketorolac 60 MG/2 ML SDV IM ONE (07:56)
== END 2019-10-03 08:53 | disposition home or self-care (01) ==
LOC: MW.ED 07:14
DX: S39.012A Strain of muscle, fascia and tendon of lower back, initial encounter (principal); J45.909 Unspecified asthma, uncomplicated; I10 Essential (primary) hypertension; Z88.1 Allergy status to other antibiotic agents; Z88.2 Allergy status to sulfonamides; Z79.899 Other long term (current) drug therapy; W19.XXXA Unspecified fall, initial encounter
CPT/HCPCS: 96372; 99283; J1885

== ENCOUNTER 2020-02-03 12:55 | Emergency (ER) | payer MEDICAID, OTHER ==
[2020-02-03] MEDS ORDERED: Ondansetron 4 MG Tab.DIS PO ONE (13:13)
--- NOTE | 2020-02-03 13:16 | EDM.PDOC ---
ED HPI GENERAL MEDICAL PROBLEM - General Chief Complaint: General Stated Complaint: MUSCLE SORENESS Time Seen by Provider: 02/03/20 13:00 Source of Information: Reports: Patient History Limitations: Reports: No Limitations - History of Present Illness INITIAL COMMENTS - FREE TEXT/NARRATIVE: HISTORY AND PHYSICAL: History of present illness: Patient is a 39-year-old female who presents to the emergency room with complaints of muscle aches, sore throat, runny nose, dry nonproductive cough, and nausea. She states a coworker recently tested positive for COVID-19 and believes she was exposed. Over the past few days she has been symptomatic and would like to get tested as she has kids at home. Patient denies any change in vision, syncope or near syncope. Denies any chest pain, back pain, shortness of breath. Denies any abdominal pain, vomiting, diarrhea, constipation or dysuria. Has not noted any blood in urine or stool. Denies any chance of . Patient has been eating and drinking appropriately. Review of systems: As per history of present illness and below otherwise all systems reviewed and negative. Past medical history: As per history of present illness and as reviewed below otherwise noncontributory. Surgical history: As per history of present illness and as reviewed below otherwise noncontributory. Social history: See social history for further information Family history: As per history of present illness and as reviewed below otherwise noncontributory. Physical exam: General: Well developed and well nourished. Alert and orientated x 3. Nontoxic in appearance and in no acute distress. Vital signs are stable and have been reviewed by me. Nursing notes were reviewed. HEENT: Atraumatic, normocephalic, pupils equal and reactive bilaterally, negative for conjunctival pallor or scleral icterus, mucous membranes moist, TMs normal bilaterally, throat clear, neck supple, nontender, trachea midline. No drooling or trismus noted. No meningeal signs. No hot potato voice noted. Lungs: Clear to auscultation, breath sounds equal bilaterally, chest nontender. Normal work of breathing, no accessory muscles used. Heart: S1S2, regular rate and rhythm without overt murmur Abdomen: Soft, nondistended, nontender. Negative for masses or hepatosplenomegaly. Negative for costovertebral tenderness. Skin: Intact, warm, dry. No lesions or rashes noted. Hematologic: No petechiae or purpra. Mucosa appropriate color and normal nail bed color and refill. Extremities: Atraumatic, moves all extremities per self without difficulty or deficits, negative for cords or calf pain. Neurovascular unremarkable. Neuro: Awake, alert, oriented. Cranial nerves II through XII unremarkable. Cerebellum unremarkable. Motor and sensory unremarkable throughout. Exam nonfocal. Psychiatric: Mood and affect are appropriate. Normal thought process. Answering questions appropriately. Notes: CXR is unremarkable. Negative COVID test here. I have spoken with the patient/caregiver and discussed today's findings, in addition to providing specific details for plan of care. Reassessment at the time of disposition demonstrates that the patient is in no acute distress. The patient has remained stable throughout the entire ED visit and is without objective evidence for acute process requiring urgent intervention or hospitalization. The patient is stable for discharge, counseling was provided and we discussed in great detail signs and symptoms that would prompt them to return to the Emergency Department. Medication, follow up and supportive care measures were reviewed and discussed. Voices understanding and is agreeable to plan of care. Denies any further questions or concerns at this time. Diagnostics: CXR, COVID Therapeutics: Zofran Prescription: Zofran Impression: Viral URI Plan: 1. Your COVID-19 screening is negative. If you are not in close contact to someone who is positive, you should continue to practice physical distancing and limit your interactions with others as much as possible. You may attend work and attend/perform essential activities if you are not sick. If you continue to feel unwell please stay home. If you are in close contact with someone who tested positive, then you should continue to quarantine until you complete 14 days. 2. COVID-19 testing is not 100% accurate, if you continue to have symptoms you can follow-up at our respiratory clinic to be tested with a send out swab. 3. You can take NyQuil during the evening to help get a restful night sleep. 4. You may alternate Tylenol and ibuprofen as needed for pain and fever management. 5. The [place] COVID 19 Hotline phone number , They are open Monday - Monday 7am - 7pm. 6. Follow up with your primary care provider for re-evaluation and if your symptoms should worsen, new symptoms develop or you feel like you are not improving you are always welcome to return to the emergency room. Definitive disposition and diagnosis as appropriate pending reevaluation and review of above. generalized muscle Pain Score (Numeric/FACES): 8 - Related Data Allergies Allergy/AdvReac Type Severity Reaction Status Date / Time ciprofloxacin [From Cipro] Allergy Hives Verified 02/03/20 13:07 Sulfa (Sulfonamide Allergy Swelling Verified 02/03/20 13:07 Antibiotics) Home Meds: Home Meds Ibuprofen 800 mg PO Q6HR PRN #20 tablet 10/03/19 [Rx] Losartan/Hydrochlorothiazide [Losartan-HCTZ 100-25 MG] 1 tab PO DAILY 02/03/20 [History] Past Medical History HEENT History: Reports: None Cardiovascular History: Reports: Hypertension Respiratory History: Reports: Asthma Gastrointestinal History: Reports: None Genitourinary History: Reports: None 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 TEST TECHNICIAN History: pre-ecclampsia Musculoskeletal History: Reports: RA Other Musculoskeletal History: degenerative disc, herniated disc, sciatic issues Neurological History: Reports: None Psychiatric History: Reports: Bipolar, Depression, PTSD, Suicidal Ideation Endocrine/Metabolic History: Reports: None Hematologic History: Reports: None Immunologic History: Reports: None Oncologic (Cancer) History: Reports: None Dermatologic History: Reports: None - Infectious Disease History Infectious Disease History: Reports: Chicken Pox, Hepatitis A, Hepatitis B, Hepatitis C, HIV-Human Immunodeficiency Virus, Measles, Mumps, Shingles - Past Surgical History Female Surgical History: Reports: None Social & Family History - Family History Family Medical History: Noncontributory - Caffeine Use Caffeine Use: Reports: None ED ROS GENERAL - Review of Systems Review Of Systems: Comprehensive ROS is negative, except as noted in HPI. ED EXAM, GENERAL - Physical Exam Exam: See Below (SEe dictation) Course - Vital Signs Last Recorded V/S: Last Vital Signs Temp 96.4 F L 02/03/20 13:04 Pulse 109 H 02/03/20 13:04 Resp 16 02/03/20 13:04 BP 129/93 H 02/03/20 13:04 Pulse Ox 96 02/03/20 13:04 - Orders/Labs/Meds Orders: Active Orders 24 hr Category Date Time Status CORONAVIRUS COVID-19 PCR [facility] Stat Lab 02/03/20 13:48 Received Labs: Laboratory Tests 02/03/20 Range/Units 13:35 SARS CoV-2 RNA Rapid YANCY NEGATIVE (NEGATIVE) Meds: Medications Discontinued Medications Generic Name Dose Route Start Last Admin Trade Name Mendoza PRN Reason Stop Dose Admin Ondansetron HCl 4 mg 02/03/20 13:13 02/03/20 13:38 Zofran Odt PO 02/03/20 13:14 4 mg ONETIME ONE Administration Departure - Departure Time of Disposition: 14:19 Disposition: Home, Self-Care 01 Clinical Impression: Viral URI - Discharge Information Instructions: Upper Respiratory Infection, Adult, [id number] Referrals: Darin Morley MD [Primary Care Provider] - Forms: ED Department Discharge Additional Instructions: The following information is given to patients seen in the emergency department who are being discharged to home. This information is to outline your options for follow-up care. We provide all patients seen in our emergency department with a follow-up referral. The need for follow-up, as well as the timing and circumstances, are variable depending upon the specifics of your emergency department visit. If you don't have a primary care physician on staff, we will provide you with a referral. We always advise you to contact your personal physician following an emergency department visit to inform them of the circumstance of the visit and for follow-up with them and/or the need for any referrals to a consulting specialist. The emergency department will also refer you to a specialist when appropriate. This referral assures that you have the opportunity for follow-up care with a specialist. All of these measure are taken in an effort to provide you with opti mal care, which includes your follow-up. Under all circumstances we always encourage you to contact your private physician who remains a resource for coordinating your care. When calling for follow-up care, please make the office aware that this follow-up is from your recent emergency room visit. If for any reason you are refused follow-up, please contact the [facility] Emergency Department at and asked to speak to the emergency department charge nurse. [facility] [address] [place] [id number] [address] [place] [address] Thank you for choosing the [facility] emergency department in [place] for your medical needs today. It was a pleasure caring for you. Today you were seen in the emergency department for respiratory symptoms. 1. Your COVID-19 screening is negative. If you are not in close contact to someone who is positive, you should continue to practice physical distancing and limit your interactions with others as much as possible. You may attend work and attend/perform essential activities if you are not sick. If you continue to feel unwell please stay home. If you are in close contact with someone who tested positive, then you should continue to quarantine until you complete 14 days. 2. COVID-19 testing is not 100% accurate, if you continue to have symptoms you can follow-up at our respiratory clinic to be tested with a send out swab. 3. You can take NyQuil during the evening to help get a restful night sleep. 4. You may alternate Tylenol and ibuprofen as needed for pain and fever jose m gement. 5. The [place] COVID 19 Hotline phone number , They are open Monday - Monday 7am - 7pm. 6. Follow up with your primary care provider for re-evaluation and if your symptoms should worsen, new symptoms develop or you feel like you are not improving you are always welcome to return to the emergency room. Sepsis Event Note (ED) - Evaluation Sepsis Screening Result: No Definite Risk - Focused Exam Vital Signs: Vital Signs Temp Pulse Resp BP Pulse Ox 02/03/20 13:04 96.4 F L 109 H 16 129/93 H 96 - My Orders Last 24 Hours: My Active Orders 02/03/20 13:48 CORONAVIRUS COVID-19 PCR [facility] Stat - Assessment/Plan Last 24 Hours: My Active Orders 02/03/20 13:48 CORONAVIRUS COVID-19 PCR PHL Stat
--- NOTE | 2020-02-03 13:38 | CR ---
Chest: Portable view of the chest was obtained. Comparison: No prior chest imaging is available. Heart size and mediastinum are within normal limits for portable technique. Lungs are clear with no acute parenchymal change. Scoliosis is noted within the spine. Impression: 1. Scoliosis. 2. Nothing acute is seen on portable chest x-ray. Diagnostic code #2 This report was dictated in MDT
== END 2020-02-03 14:28 | disposition home or self-care (01) ==
LOC: MW.ED 12:55
DX: J06.9 Acute upper respiratory infection, unspecified (principal); J45.909 Unspecified asthma, uncomplicated; I10 Essential (primary) hypertension; Z20.828 Contact with and (suspected) exposure to other viral communicable diseases; Z88.1 Allergy status to other antibiotic agents; Z88.2 Allergy status to sulfonamides; Z79.899 Other long term (current) drug therapy
CPT/HCPCS: 71045; 87635; 99283; A9270; 99282; U0002

== ENCOUNTER 2020-02-13 07:43 | Emergency (ER) | payer MEDICAID, OTHER ==
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
[2020-02-13] MEDS ORDERED: Acetaminophen 500 MG Tab PO ONE (08:13)
[2020-02-13] MEDS ORDERED: Ketorolac 30 MG/ML SDV IM ONE (08:13)
[2020-02-13] MEDS ORDERED: Diazepam 5 MG Tab PO ONE (08:13)
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
== END 2020-02-13 09:22 | disposition home or self-care (01) ==
LOC: MW.ED 07:43
DX: M54.5 Low back pain (principal); R07.81 Pleurodynia; I10 Essential (primary) hypertension; J45.909 Unspecified asthma, uncomplicated; Z88.1 Allergy status to other antibiotic agents; Z88.2 Allergy status to sulfonamides; Z79.899 Other long term (current) drug therapy
CPT/HCPCS: 71101; 72131; 96372; 99284; A9270; J1885; 99283